=== PATIENT | male | born 1960 | race Caucasian/White ===

== ENCOUNTER → 2018-03-04 | Outpatient (CLI) | payer MEDICARE, MEDICAID ==
[~2018-03-04] MED LIST: ASPI-231 PO; ATO40T PO; BUME2TAB3 PO; CLOP75TA28 PO; FERR1TAB17 PO; GABA300C10 PO; INSU1INJ19 SC; METO-75 PO; METO25TA5 PO; NEPVITT PO; NIFE60TA59 PO; POTASSIUM CHL 20 Meq TABLET PO ONE; TAMS0.4C36 PO; novalog SC
[2018-03-04 15:55] VITALS: BP 125/74
[2018-03-04 16:20] VITALS: BP 115/59
== END | disposition home or self-care (01) ==
LOC: CHF HDHVI 15:52
PROVIDERS: ATTEND Internal Medicine Cardiovascular Disease
DX: E87.6 Hypokalemia (principal); N17.9 Acute kidney failure, unspecified; E11.9 Type 2 diabetes mellitus without complications; J44.9 Chronic obstructive pulmonary disease, unspecified; F17.200 Nicotine dependence, unspecified, uncomplicated; Z79.899 Other long term (current) drug therapy
CPT/HCPCS: G0463

== ENCOUNTER → 2018-03-04 | Outpatient (CLI) | payer MEDICARE, MEDICAID ==
[~2018-03-04] MED LIST changes: -POTASSIUM CHL 20 Meq TABLET PO ONE
[2018-03-04 14:09] LABS: Basophils # (auto) 0.1 uL; Basophils % (auto) 0.9 % (0.0-2.0); Eosinophils # (auto) 0.2 uL; Eosinophils % (auto) 2.2 % (0.0-7.0); Hematocrit 43.7 % (41.0-53.0); Hemoglobin 15.2 g/dL (13.5-17.5); Lymphocytes # (auto) 1.6 uL; Mean Corpuscular Hemoglobin 29.7 pg (28.0-32.0); Mean Corpuscular Hgb Conc. 34.8 g/dL (32.0-36.0); Mean Corpuscular Volume 85.4 fL (80.0-100.0); Monocytes # (auto) 0.9 uL; Monocytes % (auto) 8.6 % (0.0-12.0); Neutrophils # (auto) 7.9 uL; Neutrophils % (auto) 73.3 % (37.0-80.0); Platelet Count (auto) 238 10^3/uL (140-450); Red Blood Cells 5.12 10^6/uL (4.5-5.90); Red Cell Distribution Width 15.9 % (11.8-14.3); White Blood Cell 10.8 10^3/uL (4.4-10.8)
[2018-03-04 14:28] LABS: INR 0.94 (0.9-1.15); Prothrombin Time 10.1 sec (9.27-12.13)
[2018-03-04 14:50] LABS: Calcium 7.9 mg/dL (8.5-10.1)
[2018-03-04 14:53] LABS: BUN/Creatinine Ratio 26.9
[2018-03-04 15:02] LABS: Potassium 2.7 mmol/L (3.5-5.1)
== END | disposition home or self-care (01) ==
LOC: LAB 13:49
PROVIDERS: ATTEND Internal Medicine Cardiovascular Disease
DX: Z01.818 Encounter for other preprocedural examination (principal); I50.9 Heart failure, unspecified; J44.9 Chronic obstructive pulmonary disease, unspecified
CPT/HCPCS: 36415; 80048; 85025; 85610; 85730

== ENCOUNTER 2018-03-06 10:37 | Inpatient (IN) | payer MEDICARE, MEDICAID ==
[~2018-03-06] VITALS: Ht 175.3 cm; Wt 120.5 kg
[2018-03-06] MEDS ORDERED: LIDOCAINE 2%HCL (LOCAL ANESTH.) INJ 10ml MDV ONE (12:49)
[2018-03-06] MEDS ORDERED: IODIXANOL 320MG/ML 100ML BTL IV ONE ×2 (12:49→13:23)
[2018-03-06] MEDS ORDERED: ANGIOMAX 250 MG VIAL IV ONE ×2 (12:51→14:17)
[2018-03-06] MEDS ORDERED: fentaNYL CITRATE 100 MCG/2 ML VL ONE (12:51)
[2018-03-06] MEDS ORDERED: SODIUM CHL 0.9% 0 ML ONE (12:52)
[2018-03-06] MEDS ORDERED: MIDAZOLAM HCL 1MG/1ML-2 ML VIAL ONE (12:52)
[2018-03-06] MEDS ORDERED: SODIUM CHL 0.9% 50 ML ONE (14:17)
[2018-03-06] MEDS ORDERED: SODIUM CHL 0.9% 1,000 ML IV ONE (14:54)
[2018-03-06] MEDS ORDERED: DEXTROSE (50%) 50ML SYRG IV PRN (15:00)
[2018-03-06] MEDS ORDERED: NITROGLYCERIN 0.4 MG SL TAB SL PRN (15:00)
[2018-03-06] MEDS ORDERED: ACETAMINOPHEN 500 MG TAB PO PRN (15:00)
[2018-03-06] MEDS ORDERED: MORPHINE SULF INJ 2 MG/ML SYRINGE 1ML IV PRN (15:00)
[2018-03-06] MEDS ORDERED: ONDANSETRON HCL 4 MG/2 ML VIAL IV PRN (15:00)
[2018-03-06 16:00] VITALS: BP 125/68
[2018-03-06] MEDS: ACCU-CHEK COMFORT CURVE STRIP VI SCH ×2 (16:38→21:45)
[2018-03-06] MEDS: GABAPENTIN 300 MG CAP PO SCH ×2 (16:47→21:41)
[2018-03-06] MEDS: HYDROcodone-ACET 5/325MG TAB PO PRN ×2 (16:47→21:42)
[2018-03-06] MEDS: InsuLIN REG 1unit/0.01ml Soln (100units/ml) SC SCH (16:47)
[2018-03-06] MEDS: METOPROLOL TARTRATE 25 MG TAB PO SCH (21:41)
[2018-03-06] MEDS: SODIUM CHLOR 0.9% PF (SALINE LOCK) 10ML VIAL/SYR IV SCH (21:44)
[2018-03-06 22:00] VITALS: BP 172/75
[2018-03-06] MEDS ORDERED: INSULIN LANTUS (GLARGINE) 1 /0.01ml (100units/ml) SC SCH (22:00)
[2018-03-06] MEDS ORDERED: TAMSULOSIN HYDROCHLORIDE 0.4 MG CAP PO SCH (22:00)
[2018-03-06] MEDS ORDERED: InsuLIN REG 1unit/0.01ml Soln (100units/ml) SC SCH (22:00)
[2018-03-06] MEDS ORDERED: ATORVASTATIN 20 MG TAB PO SCH (22:00)
[2018-03-07 05:00] VITALS: BP 162/94
[2018-03-07] MEDS: GABAPENTIN 300 MG CAP PO SCH ×2 (05:39→11:52)
[2018-03-07] MEDS: SODIUM CHLOR 0.9% PF (SALINE LOCK) 10ML VIAL/SYR IV SCH ×2 (05:40→14:16)
[2018-03-07] MEDS: ACCU-CHEK COMFORT CURVE STRIP VI SCH ×2 (05:40→11:56)
[2018-03-07] MEDS: InsuLIN REG 1unit/0.01ml Soln (100units/ml) SC SCH ×2 (05:40→11:56)
[2018-03-07 06:44] LABS: Calcium 8.4 mg/dL (8.5-10.1)
[2018-03-07 06:51] LABS: BUN/Creatinine Ratio 31.2
[2018-03-07 07:10] LABS: Potassium 2.8 mmol/L (3.5-5.1)
[2018-03-07] MEDS ORDERED: POTASSIUM CHL 20 Meq TABLET PO ONE ×2 (07:45→14:00)
[2018-03-07 09:54] VITALS: BP 136/71
[2018-03-07] MEDS ORDERED: CLOPIDOGREL BISULFATE 75 MG TAB PO SCH (10:00)
[2018-03-07] MEDS ORDERED: ASPirin-EC 81 mg tab PO SCH (10:00)
[2018-03-07] MEDS ORDERED: B-COMPLEX W/ C & FOLIC ACID(NEPHROVITE TAB) PO SCH (10:00)
[2018-03-07] MEDS ORDERED: NIFEdipine ER 30 MG TAB PO SCH (10:00)
[2018-03-07] MEDS: METOPROLOL TARTRATE 25 MG TAB PO SCH (10:45)
[2018-03-07 13:00] VITALS: BP 131/76
[2018-03-07 16:33] VITALS: BP 132/70
[2018-03-07 16:35] VITALS: BP 129/74
== END 2018-03-07 17:42 | disposition home or self-care (01) | DRG 271 ==
LOC: CATH 10:37 → TELE-WESTW 10:38
PROVIDERS: ADMIT Internal Medicine Cardiovascular Disease; ATTEND Internal Medicine Cardiovascular Disease
PROC: B41G1ZZ Fluoroscopy of Left Lower Extremity Arteries using Low Osmolar Contrast (ICD-10-PCS; principal; 2018-03-06)
PROC: 04CP3ZZ Extirpation of Matter from Right Anterior Tibial Artery, Percutaneous Approach (ICD-10-PCS; 2018-03-06)
PROC: 047P3ZZ Dilation of Right Anterior Tibial Artery, Percutaneous Approach (ICD-10-PCS; 2018-03-06)
PROC: B41F1ZZ Fluoroscopy of Right Lower Extremity Arteries using Low Osmolar Contrast (ICD-10-PCS; 2018-03-06)
DX: I70.213 Atherosclerosis of native arteries of extremities with intermittent claudication, bilateral legs (principal); N17.9 Acute kidney failure, unspecified; N18.4 Chronic kidney disease, stage 4 (severe); I74.3 Embolism and thrombosis of arteries of the lower extremities; E11.51 Type 2 diabetes mellitus with diabetic peripheral angiopathy without gangrene; E78.5 Hyperlipidemia, unspecified; E66.9 Obesity, unspecified; I12.9 Hypertensive chronic kidney disease with stage 1 through stage 4 chronic kidney disease, or unspecified chronic kidney disease; E87.6 Hypokalemia; E11.22 Type 2 diabetes mellitus with diabetic chronic kidney disease; E11.21 Type 2 diabetes mellitus with diabetic nephropathy; H54.8 Legal blindness, as defined in USA; Z87.891 Personal history of nicotine dependence; Z82.49 Family history of ischemic heart disease and other diseases of the circulatory system; Z68.39 Body mass index [BMI] 39.0-39.9, adult
CPT/HCPCS: 36415; 37228; 37229; 75716; 80048; 82962; 84132; 93005; 99152; A6257; J1815; J2001; J2250; Q9967

== ENCOUNTER 2018-03-12 16:44 | Emergency (ER) | payer MEDICARE, MEDICAID ==
[~2018-03-12] VITALS: Ht 172.7 cm; Wt 90.7 kg
[2018-03-12 16:57] VITALS: BP 137/87
[2018-03-12 17:58] LABS: Basophils # (auto) 0.1 uL; Basophils % (auto) 0.6 % (0.0-2.0); Eosinophils # (auto) 0.3 uL; Eosinophils % (auto) 3.1 % (0.0-7.0); Hematocrit 41.7 % (41.0-53.0); Hemoglobin 14.1 g/dL (13.5-17.5); Lymphocytes # (auto) 1.3 uL; Lymphocytes % (auto) 11.7 % (10.0-50.0); Mean Corpuscular Hemoglobin 29.4 pg (28.0-32.0); Mean Corpuscular Hgb Conc. 33.8 g/dL (32.0-36.0); Mean Corpuscular Volume 86.9 fL (80.0-100.0); Monocytes % (auto) 8.9 % (0.0-12.0); Neutrophils # (auto) 8.1 uL; Neutrophils % (auto) 75.7 % (37.0-80.0); Nucleated Red Blood Cells % 0.1 %; Platelet Count (auto) 253 10^3/uL (140-450); Red Cell Distribution Width 15.6 % (11.8-14.3); White Blood Cell 10.7 10^3/uL (4.4-10.8)
[2018-03-12 18:11] LABS: Albumin 3.1 g/dL (3.4-5.0); BUN/Creatinine Ratio 24.5; Calcium 8.2 mg/dL (8.5-10.1); Potassium 4.7 mmol/L (3.5-5.1)
[2018-03-12 18:14] LABS: Bilirubin, Total 0.5 mg/dL (0.2-1.0)
== END 2018-03-12 21:44 | disposition left against medical advice (07) ==
LOC: EDBD 16:44 → ER 16:50
DX: R10.11 Right upper quadrant pain (principal); R42 Dizziness and giddiness; Z53.21 Procedure and treatment not carried out due to patient leaving prior to being seen by health care provider
CPT/HCPCS: 36415; 80053; 84484; 85025; 93005

== ENCOUNTER → 2018-04-01 | Outpatient (CLI) | payer MEDICARE, MEDICAID | END | disposition home or self-care (01) | LOC: Rad HDHVI 14:02 | PROVIDERS: ATTEND Internal Medicine Cardiovascular Disease | DX: I73.9 Peripheral vascular disease, unspecified (principal); I11.0 Hypertensive heart disease with heart failure; I50.9 Heart failure, unspecified; E11.9 Type 2 diabetes mellitus without complications; J44.9 Chronic obstructive pulmonary disease, unspecified; F32.9 Major depressive disorder, single episode, unspecified; F41.9 Anxiety disorder, unspecified; F17.200 Nicotine dependence, unspecified, uncomplicated | CPT/HCPCS: 93926 ==

== ENCOUNTER → 2018-04-07 | Outpatient (CLI) | payer MEDICARE, MEDICAID ==
[2018-04-07 10:30] VITALS: BP 141/60
[2018-04-07 11:00] VITALS: BP 131/73
[2018-04-07 12:52] LABS: INR 0.95 (0.9-1.15); Partial Thromboplastin Time 27.4 sec (23.78-33.04); Prothrombin Time 10.2 sec (9.27-12.13)
[2018-04-07 13:10] LABS: Basophils # (auto) 0.1 uL; Basophils % (auto) 0.6 % (0.0-2.0); Eosinophils # (auto) 0.3 uL; Eosinophils % (auto) 2.9 % (0.0-7.0); Hemoglobin 14.5 g/dL (13.5-17.5); Lymphocytes # (auto) 1.5 uL; Lymphocytes % (auto) 13.1 % (10.0-50.0); Mean Corpuscular Hemoglobin 28.9 pg (28.0-32.0); Mean Corpuscular Hgb Conc. 33.6 g/dL (32.0-36.0); Mean Corpuscular Volume 86.1 fL (80.0-100.0); Monocytes # (auto) 0.8 uL; Monocytes % (auto) 6.7 % (0.0-12.0); Neutrophils # (auto) 8.8 uL; Neutrophils % (auto) 76.7 % (37.0-80.0); Platelet Count (auto) 242 10^3/uL (140-450); Red Cell Distribution Width 15.4 % (11.8-14.3); White Blood Cell 11.4 10^3/uL (4.4-10.8)
[2018-04-07 13:36] LABS: BUN/Creatinine Ratio 28.5; Calcium 8.3 mg/dL (8.5-10.1)
[2018-04-07 14:09] LABS: Potassium 2.8 mmol/L (3.5-5.1)
== END | disposition home or self-care (01) ==
LOC: Rad HDHVI 10:13
PROVIDERS: ATTEND Internal Medicine Cardiovascular Disease
DX: Z01.812 Encounter for preprocedural laboratory examination (principal); I10 Essential (primary) hypertension; E11.9 Type 2 diabetes mellitus without complications; I73.9 Peripheral vascular disease, unspecified; R79.1 Abnormal coagulation profile; D64.9 Anemia, unspecified
CPT/HCPCS: 36415; 71046; 80048; 85025; 85610; 85730; 93005; G0463

== ENCOUNTER → 2018-04-09 | Outpatient (CLI) | payer MEDICARE, MEDICAID ==
[2018-04-09 09:06] LABS: Magnesium 2.2 mg/dL (1.6-2.6)
== END | disposition home or self-care (01) ==
LOC: LAB 08:08
PROVIDERS: ATTEND Internal Medicine Cardiovascular Disease
DX: E83.40 Disorders of magnesium metabolism, unspecified (principal); R94.4 Abnormal results of kidney function studies; E87.6 Hypokalemia; I50.9 Heart failure, unspecified; J44.9 Chronic obstructive pulmonary disease, unspecified; F41.9 Anxiety disorder, unspecified; F32.9 Major depressive disorder, single episode, unspecified; F17.200 Nicotine dependence, unspecified, uncomplicated
CPT/HCPCS: 36415; 82565; 83735; 84132; 84520

== ENCOUNTER 2025-03-06 10:34 | Inpatient (IN) | payer MEDICARE, MEDICAID ==
[~2025-03-06] VITALS: Ht 175.3 cm; Wt 110.7 kg
[~2025-03-06 10:34] MED LIST changes: -ASPI-231 PO; +ASPI1TAB20 PO; -ATO40T PO; +ATOR-507 PO; +B-CO1TAB33 PO; -BUME2TAB3 PO; +BUME2TAB5 PO; +GABA-1250 PO; -GABA300C10 PO; -METO-75 PO; +METO10TA7 PO; -NEPVITT PO; +NIFE1TAB30 PO; -NIFE60TA59 PO; -TAMS0.4C36 PO; +TAMS0.4C39 PO
--- NOTE | 2025-03-06 11:44 | ED.PDOC ---
HPI Comments 65-year-old male with a history of right eye blindness, CKD, diabetes, dyslipidemia, CAD status post PTCA brought in by EMS from home complaining of left-sided pressure-like chest pain since yesterday, worse over the past 2 hours. Patient states pain has been constant. At its worst it was 9/10. Patient was given aspirin p.o. and sublingual nitroglycerin by EMS, which improved pain to 5/10. He denies any shortness of breath, fever, cough, nausea, vomiting, diaphoresis or edema. Chief Complaint: Chest Pain Time Seen by MD: 11:35 Primary Care Provider: NONE Reviewed Notes: Nurses Notes, Retail Advertising Sales Manager Notes, Medications, Allergies Allergies: Coded Allergies: NO KNOWN ALLERGIES (Unverified , 04/07/18) Home Meds Reported Medications Insulin Glargine (Basaglar Kwikpen) 100 Unit/Ml Inj, 50 UNIT SC HS, INJ 03/03/18 B-Complex W/ C & Folic Acid (Nephro-Edie Rx) 1 Tab Tb, 1 TAB PO DAILY 03/03/18 Metolazone (Metolazone) 10 Mg Tab, 10 MG PO DAILY for 30 Days, MG 03/03/18 Metoprolol Tartrate (Metoprolol Tartrate) 25 Mg Tab, 25 MG PO BID for 30 Days, MG 03/03/18 Ferric Citrate (Auryxia) 210 Mg Tab, 210 MG PO DAILY, TAB 03/03/18 [novalog] No Conflict Check, 8 UNITS SC lunch time 05/22/17 [novalog] No Conflict Check, 8 UNITS SC QPM 05/22/17 [novalog] No Conflict Check, 14 SC QAM 05/22/17 Nifedipine (Nifedipine Er) 60 Mg Tab, 1 TAB PO DAILY, #30 TAB 5 Refills 05/22/17 Bumetanide (Bumetanide) 2 Mg Tab, 1 TAB PO BID, #60 TAB 5 Refills 05/23/16 Atorvastatin Calcium (Lipitor) 40 Mg Tab, 40 MG PO HS, TAB 03/28/15 Aspirin (Aspir-81) 81 Mg Tab, 81 MG PO DAILY, TAB 03/28/15 Tamsulosin Hcl (Tamsulosin Hcl) 0.4 Mg Cap, 0.4 MG PO HS, CAP 03/28/15 Gabapentin (Gabapentin) 300 Mg Cap, 600 MG PO QID, CAP 03/28/15 Clopidogrel Bisulfate (Plavix) 75 Mg Tab, 75 MG PO DAILY, TAB 03/28/15 Information Source: Patient Mode of Arrival: EMS Past Medical History PAST MEDICAL HISTORY: CAD, CKF, DM (type II), ESRD, High Lipids Past Medical History (Other): blind in right eye On ASA and Plavix LUCIANO on [facility]N Surgical History: Cholecystectomy, PTCA (x2) Surgical History (Other): 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 Moist mucous membranes.) Neck: Full Range of Motion, Normal Inspection Respiratory: Lungs Clear, No Accessory Muscle Use, No Respiratory Distress, Normal Breath Sounds Cardiovascular: No Edema, No JVD, Regular Rate/Rhythm Breast Exam: Deferred Gastrointestinal: Non Tender, Soft Genitalia: Deferred Pelvic: Deferred Rectal: Deferred Extremities: Non-tender, No pedal edema Neurologic: Alert (Oriented x4), Normal Affect, Normal Mood Cerebellar Function: NOT DONE Reflexes: NOT DONE Skin: Dry, Normal Color, Warm Lymphatic: NOT DONE EKG EKG : Comments Sinus rhythm, rate 66, ID slightly prolonged at 222, normal QRS and QTC intervals, normal axis, normal QRS, nonspecific T change. Was a procedure done? Was a procedure done?: No CP Differential Dx Differential Diagnosis: Pulmonary Embolus, N/A Differential Diagnosis: CHF Differential Diagnosis: Angina, Chest Wall Pain, Cholelithiasis, Esophageal reflux/spasm, Gastritis, Myocardial Infarction, Pericarditis, Pneumonia, Pulmonary Embolus X-Ray, Labs, Meds, VS Vital Signs Date Time Temp Pulse Resp B/P (MAP) Pulse Ox O2 Delivery O2 Flow Rate FiO2 03/06/25 13:44 75 15 143/53 (83) 94 03/06/25 13:44 75 15 143/53 03/06/25 12:51 71 16 110/62 03/06/25 12:51 71 16 110/62 (78) 94 03/06/25 12:28 71 03/06/25 12:26 71 14 95 Room Air* 0 21 03/06/25 12:26 97.7 71 14 106/53 (70) 94 97.7 03/06/25 10:46 66 03/06/25 10:35 98.0 61 18 132/75 97 98.0 Lab Test 03/06/25 13:11 03/06/25 12:05 Range/Units Troponin I High Sensitivity Pending 32 </=54 ng/L White Blood Count 13.4 H 4.4-10.8 10^3/uL Red Blood Count 4.87 4.5-5.90 10^6/uL Hemoglobin 15.4 13.5-17.5 g/dL Hematocrit 44.8 41.0-53.0 % Mean Corpuscular Volume 91.9 80.0-100.0 fL Mean Corpuscular Hemoglobin 31.6 28.0-32.0 pg Mean Corpuscular Hemoglobin Concent 34.4 32.0-36.0 g/dL Red Cell Distribution Width 13.9 11.8-14.3 % Platelet Count 209 140-450 10^3/uL Mean Platelet Volume 9.3 6.9-10.8 fL Neutrophils (%) (Auto) 37.0-80.0 % Lymphocytes (%) (Auto) 10.0-50.0 % Monocytes (%) (Auto) 0.0-12.0 % Basophils (%) (Auto) 0.0-2.0 % Neutrophils # (Auto) 1.6-8.6 10 ^3/uL Lymphocytes # (Auto) 0.4-5.4 10 ^3/uL Monocytes # (Auto) 0-1.3 10 ^3/uL Differential Total Cells Counted 100.0 100 Neutrophils % (Manual) 85 H 37.0-80.0 Band Neutrophils % (Manual) 2 Lymphocytes % (Manual) 8 L 10.0-50.0 Monocytes % (Manual) 4 0-12 Eosinophils % (Manual) 1 0-7 Basophils % (Manual) 0 0.0-2.0 Metamyelocytes % (manual) 0 Myelocytes % (Manual) 0 Promyelocytes % (Manual) 0 Blast Cells % (Manual) 0 Reactive Lymphocytes 0 Platelet Estimate Adequate Sodium Level 128 L 136-145 mmol/L Potassium Level 4.9 3.5-5.1 mmol/L Chloride Level 93 L 98-107 mmol/L Carbon Dioxide Level 24 20-31 mmol/L Anion Gap 11 5-15 Blood Urea Nitrogen 77 H 9-23 mg/dL Creatinine 2.62 H 0.700-1.30 mg/dL Glomerular Filtration Rate Calc 26 >90 mL/min BUN/Creatinine Ratio 29.4 H 10.0-20.0 Serum Glucose 126 H 74-106 mg/dL Calcium Level 9.3 8.7-10.4 mg/dL B-Type Natriuretic Peptide 33.27 0-100 pg/mL Current Medications Medications (Trade) Dose Ordered Sig/Rashid Route Start Time Stop Time Status Last Admin Morphine Sulfate 4 mg ONCE ONCE IV 03/06/25 11:45 03/06/25 11:46 DC 03/06/25 12:51 Ondansetron HCl (Zofran) 4 mg ONCE ONCE IV 03/06/25 11:45 03/06/25 11:46 DC 03/06/25 12:48 PROCEDURE(s): CXRP - CHEST PORTABLE REASON: cp ORDER NUMBER(s): [id number], ACCESSION NUMBER(s): [id number] CHEST RADIOGRAPH Indication: cp Technique: Single frontal view of the chest was obtained COMPARISON: XY CHEST PORTABLE on DOS: 03/31/24 FINDINGS: Lines and Tubes: None Lungs: Clear Pleura: No effusion. No pneumothorax. Cardiomediastinal contours: Unremarkable Bones: Unremarkable IMPRESSION: 1. No acute disease. X-Ray, Labs, Meds, VS Comment 65-year-old male with a history of right eye blindness, CKD, diabetes, dys lipidemia, CAD status post PTCA brought in by EMS from home complaining of left- sided pressure-like chest pain since yesterday, worse over the past 2 hours. Vitals unremarkable Exam unremarkable Rhythm strip independently interpreted by me: Sinus rhythm, rate 86, no ectopy. Chest x-ray no acute disease CBC remarkable for WBC 13.4, basic metabolic panel remarkable for sodium 128, chloride 93, BUN 77, creatinine 2.62, BNP and troponin unremarkable Patient treated with the following in the ED: Nitro-Bid 1/2 inch to chest wall, morphine 4 mg IV, Zofran 4 mg IV, 1 L 0.9 normal saline IV bolus On re-evaluation, pain has improved. Vitals were stable. Heart score is 6. Plan is to admit the patient for ongoing serial troponins and Cardiology evaluation. Time of 1ST Reevaluation: 12:05 Reevaluation 1ST: Unchanged Patient Education/Counseling: Diagnosis, Treatment Family Education/Counseling: No Family Present SEPSIS Sepsis Screen Date sepsis recognized/suspect: Mar 06, 2025 Time Sepsis recognized/suspect: 1034 Recent Procedure: No On Antibiotic Therapy: No Respiratory Rate >20: No Heart Rate >90: No Temp<36 C (96.8 F) or >38.3 C: No SBP <90 or MAP <65 mmHG: No New Acute Mental Status Change: No Is the patient on CPAP, BIPAP,: No Physician Orders Chest Portable (03/06/25 11:39) Urinalysis (03/06/25 11:39) Troponin-I Hs (03/06/25 12:39) Troponin-I Hs (03/06/25 14:39) Electrocardigram (03/06/25 12:39) Electrocardigram (03/06/25 14:39) Saline Lock (03/06/25 12:01) Sodium Chloride 0.9% (03/06/25 14:00) Vital Signs Date Time Temp Pulse Resp B/P (MAP) Pulse Ox O2 Delivery O2 Flow Rate FiO2 03/06/25 13:44 75 15 143/53 (83) 94 03/06/25 13:44 75 15 143/53 03/06/25 12:51 71 16 110/62 03/06/25 12:51 71 16 110/62 (78) 94 03/06/25 12:28 71 03/06/25 12:26 71 14 95 Room Air* 0 21 03/06/25 12:26 97.7 71 14 106/53 (70) 94 97.7 03/06/25 10:46 66 03/06/25 10:35 98.0 61 18 132/75 97 98.0 Laboratory Tests Test 03/06/25 12:05 White Blood Count 13.4 10^3/uL (4.4-10.8) H Medications Medications Dose Ordered Sig/Rashid Route Start Time Stop Time Status Last Admin Dose Admin Morphine Sulfate 4 mg ONCE ONCE IV 03/06/25 11:45 03/06/25 11:46 DC 03/06/25 12:51 Ondansetron HCl 4 mg ONCE ONCE IV 03/06/25 11:45 03/06/25 11:46 DC 03/06/25 12:48 Departure 1 Departure Time of Disposition: 13:00 Impression: Primary Impression: Chest pain with high risk for cardiac etiology Additional Impression: Electrolyte imbalance Disposition: ADMITTED INPATIENT Admit to: Tele Condition: Guarded Critical Care Note Critical Care Time?: No Stability Stability form required: No Heart Score Heart Score: Heart Score Response (Comments) Value History Highly Suspicious 2 EKG Repolarization Disturb 1 Age 45-64 1 Risk Factors >3 or Hx ASHD 2 Troponin Normal limit 0 Total 6 I personally scribed for ALFREDO THOMAS MD ([email or web address]) on 03/06/25 at 11:44. Electronically submitted by Eleno Thorpe [email or web address]). ALFREDO THOMAS MD Mar 06, 2025 11:44
[2025-03-06] MEDS: ONDANSETRON HCL 4 MG/2 ML VIAL IV ONE (12:24)
[2025-03-06] MEDS: NITROGLYCERIN 2% OINT 1GM PKG TD ONE (12:24)
[2025-03-06] MEDS: MORPHINE SULFATE 4 MG/ML SYR/VIAL IV ONE (12:24)
[2025-03-06 12:26] VITALS: PULSE 71; RESP 14; O2SAT 95
--- NOTE | 2025-03-06 12:35 | DVH ---
CHEST RADIOGRAPH Indication: cp Technique: Single frontal view of the chest was obtained COMPARISON: XY CHEST PORTABLE on DOS: 03/31/24 FINDINGS: Lines and Tubes: None Lungs: Clear Pleura: No effusion. No pneumothorax. Cardiomediastinal contours: Unremarkable Bones: Unremarkable IMPRESSION: 1. No acute disease.
--- NOTE | 2025-03-06 12:36 | ECG ---
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
[2025-03-06 12:47] LABS: Hematocrit 44.8 % (41.0-53.0); Hemoglobin 15.4 g/dL (13.5-17.5); Mean Corpuscular Hemoglobin 31.6 pg (28.0-32.0); Mean Corpuscular Volume 91.9 fL (80.0-100.0)
[2025-03-06 12:49] LABS: Potassium 4.9 mmol/L (3.5-5.1)
[2025-03-06 12:50] LABS: Anion Gap 11 (5-15); Carbon Dioxide 24 mmol/L (20-31)
[2025-03-06 12:51] LABS: Calcium 9.3 mg/dL (8.7-10.4)
[2025-03-06 12:55] LABS: BUN/Creatinine Ratio 29.4 (10.0-20.0)
[2025-03-06 12:57] LABS: Blood Urea Nitrogen 77 mg/dL (9-23); Chloride 93 mmol/L (98-107); Glucose 126 mg/dL (74-106); Sodium 128 mmol/L (136-145)
[2025-03-06 13:23] LABS: Total Cells Counted 100.0 (100)
[2025-03-06] MEDS: SODIUM CHLORIDE 0.9% 1,000 ML IV ONE (14:11)
--- NOTE | 2025-03-06 14:42 | DVHHP2 ---
Admitting Diagnosis: chest pain History of Present Illness 65-year-old male with a history of right eye blindness, CKD, diabetes, dyslipidemia, CAD status post PTCA brought in by EMS from home complaining of left-sided pressure-like chest pain since yesterday, worse over the past 2 hours. Patient states pain has been constant. At its worst it was 9/10. Patient was given aspirin p.o. and sublingual nitroglycerin by EMS, which improved pain to 5/10. He denies any shortness of breath, fever, cough, nausea, vomiting, diaphoresis or edema. PAST MEDICAL HISTORY: CAD, CKF, DM (type II), ESRD, High Lipids Past Medical History (Other): blind in right eye On ASA and Plavix LUCIANO on [facility] Surgical History: Cholecystectomy, PTCA (x2) Surgical History (Other): Right foot amputation of rahul and fith digit Left mid foot amputatin Gastric bypass Family History Family History: Unobtainable Social History Smoker: Cigarettes Alcohol: Occasionally Drugs: Methamphetamine Lives In: Home Patient Family History: Patient reports no known family medical history. Allergies: Coded Allergies: NO KNOWN ALLERGIES (Unverified , 04/07/18) Home Meds Reported Medications Insulin Glargine (Basaglar Kwikpen) 100 Unit/Ml Inj, 50 UNIT SC HS, INJ 03/03/18 B-Complex W/ C & Folic Acid (Nephro-Edie Rx) 1 Tab Tb, 1 TAB PO DAILY 03/03/18 Metolazone (Metolazone) 10 Mg Tab, 10 MG PO DAILY for 30 Days, MG 03/03/18 Metoprolol Tartrate (Metoprolol Tartrate) 25 Mg Tab, 25 MG PO BID for 30 Days, MG 03/03/18 Ferric Citrate (Auryxia) 210 Mg Tab, 210 MG PO DAILY, TAB 03/03/18 [novalog] No Conflict Check, 8 UNITS SC lunch time 05/22/17 [novalog] No Conflict Check, 8 UNITS SC QPM 05/22/17 [novalog] No Conflict Check, 14 SC QAM 05/22/17 Nifedipine (Nifedipine Er) 60 Mg Tab, 1 TAB PO DAILY, #30 TAB 5 Refills 05/22/17 Bumetanide (Bumetanide) 2 Mg Tab, 1 TAB PO BID, #60 TAB 5 Refills 05/23/16 Atorvastatin Calcium (Lipitor) 40 Mg Tab, 40 MG PO HS, TAB 03/28/15 Aspirin (Aspir-81) 81 Mg Tab, 81 MG PO DAILY, TAB 03/28/15 Tamsulosin Hcl (Tamsulosin Hcl) 0.4 Mg Cap, 0.4 MG PO HS, CAP 03/28/15 Gabapentin (Gabapentin) 300 Mg Cap, 600 MG PO QID, CAP 03/28/15 Clopidogrel Bisulfate (Plavix) 75 Mg Tab, 75 MG PO DAILY, TAB 03/28/15 Current Medications Current Medications Medications (Trade) Dose Ordered Sig/Rashid Route PRN Reason Start Time Stop Time Status Last Admin Aspirin (Ecotrin Enteric Coated Tablet) 81 mg DAILY PO 03/07/25 10:00 UNV Multivit/Ca Carb/ B Cmplx/FA/Prenat (Nephro-Edie Tablet) 1 tab DAILY PO 03/07/25 10:00 UNV Clopidogrel Bisulfate (Plavix) 75 mg DAILY PO 03/07/25 10:00 UNV Gabapentin (Neurontin Capsule) 600 mg QID PO 03/06/25 18:00 UNV Tamsulosin HCl (Flomax) 0.4 mg HS PO 03/06/25 22:00 UNV Patient Own Medication 40 mg HS PO 03/06/25 22:00 UNV Patient Own Medication 210 mg DAILY PO 03/07/25 10:00 UNV Patient Own Medication 50 unit HS SC 03/06/25 22:00 UNV Patient Own Medication 10 mg DAILY PO 03/07/25 10:00 UNV Patient Own Medication 1 tab DAILY PO 03/07/25 10:00 UNV Heparin Sodium (Porcine) 5,000 units Q12HR SC 03/06/25 22:00 UNV Vital Signs Vital Signs Date Time Temp Pulse Resp B/P (MAP) Pulse Ox O2 Delivery O2 Flow Rate FiO2 03/06/25 13:44 75 15 143/53 (83) 94 03/06/25 12:26 Room Air* 0 21 03/06/25 12:26 97.7 97.7 Physical Exam Generally 65 years old male, overweight, lying in bed. Mild distress HEENT-atraumatic, normocephalic Heart-regular rate and rhythm Lungs clear to auscultate bilaterally Abdomen nondistended Musculoskeletal-pedal edema no cyanosis Neuro-AO x3, no focal deficits SEPSIS Sepsis Screen Date sepsis recognized/suspect: Mar 06, 2025 Time Sepsis recognized/suspect: 1035 Recent Procedure: No On Antibiotic Therapy: No Respiratory Rate >20: No Heart Rate >90: No Temp<36 C (96.8 F) or >38.3 C: No SBP <90 or MAP <65 mmHG: No New Acute Mental Status Change: No Is the patient on CPAP, BIPAP,: No Physician Orders Chest Portable (03/06/25 11:39) Electrocardigram (03/06/25 12:39) Electrocardigram (03/06/25 14:39) Saline Lock (03/06/25 12:01) Cardiac Diet-2gna,Lofat,Lochol (03/06/25 Dinner) Npo (Nothing By Mouth) Diet (03/07/25 Breakfast) Cardiolite Multiple (03/06/25 15:57) Aspirin Enteric Coated Tablet (Ecotrin E (03/07/25 10:00) B-Complex W/ C & Folic Tablet (Nephro-Vi (03/07/25 10:00) Clopidogrel Bisulfate (Plavix) (03/07/25 10:00) Gabapentin Capsule (Neurontin Capsule) (03/06/25 18:00) Tamsulosin Hydrochloride (Flomax) (03/06/25 22:00) (Nf) Atorvastatin Calcium (Lipitor) (03/06/25 22:00) (Nf) Ferric Citrate (Auryxia) (03/07/25 10:00) (Nf) Insulin Glargine (Basaglar Kwikpen) (03/06/25 22:00) (Nf) Metolazone (03/07/25 10:00) (Nf) Nifedipine (Nifedipine Er) (03/07/25 10:00) Comprehensive Metabolic Panel (03/07/25 05:00) Comprehensive Metabolic Panel (03/08/25 05:00) Comprehensive Metabolic Panel (03/09/25 05:00) Comprehensive Metabolic Panel (03/10/25 05:00) Comprehensive Metabolic Panel (03/11/25 05:00) Complete Blood Count (03/07/25 05:00) Complete Blood Count (03/08/25 05:00) Complete Blood Count (03/09/25 05:00) Complete Blood Count (03/10/25 05:00) Complete Blood Count (03/11/25 05:00) Heparin Sodium (Porcine) (03/06/25 22:00) Vital Signs Date Time Temp Pulse Resp B/P (MAP) Pulse Ox O2 Delivery O2 Flow Rate FiO2 03/06/25 13:44 75 15 143/53 (83) 94 03/06/25 13:44 75 15 143/53 03/06/25 12:51 71 16 110/62 03/06/25 12:51 71 16 110/62 (78) 94 03/06/25 12:28 71 03/06/25 12:26 71 14 95 Room Air* 0 21 03/06/25 12:26 97.7 71 14 106/53 (70) 94 97.7 03/06/25 10:46 66 03/06/25 10:35 98.0 61 18 132/75 97 98.0 Laboratory Tests Test 03/06/25 12:05 White Blood Count 13.4 10^3/uL (4.4-10.8) H Medications Medications Dose Ordered Sig/Rashid Route Start Time Stop Time Status Last Admin Dose Admin Morphine Sulfate 4 mg ONCE ONCE IV 03/06/25 11:45 03/06/25 11:46 DC 03/06/25 12:51 Ondansetron HCl 4 mg ONCE ONCE IV 03/06/25 11:45 03/06/25 11:46 DC 03/06/25 12:48 Sodium Chloride 1,000 ml @ 1,000 mls/hr Q1H ONCE IV 03/06/25 14:00 03/06/25 14:59 DC 03/06/25 14:11 Results Labs Test 03/06/25 13:11 03/06/25 13:06 03/06/25 12:05 Range/Units Troponin I High Sensitivity 29 </=54 ng/L Urine Color Light-yellow Yellow Urine Clarity Clear Clear Urine pH 5.5 5.0-9.0 Urine Specific [place] 1.008 1.001-1.035 Urine Protein Negative Negative Urine Ketones Negative Negative Urine Blood Negative Negative /uL Urine Nitrite Negative Negative Urine Bilirubin Negative Negative Urine Urobilinogen Normal Negative mg/dL Urine Leukocyte Esterase Negative Negative /uL Urine RBC <1 0 - 3 /hpf Urine Microscopic WBC < 1 0-3 /HPF Urine Squamous Epithelial Cells Few <5 /hpf Urine Bacteria Few H None Seen /hpf Urine Hyaline Casts Few 0 - 2 /lpf Urine Glucose Normal Normal mg/dL White Blood Count 13.4 H 4.4-10.8 10^3/uL Red Blood Count 4.87 4.5-5.90 10^6/uL Hemoglobin 15.4 13.5-17.5 g/dL Hematocrit 44.8 41.0-53.0 % Mean Corpuscular Volume 91.9 80.0-100.0 fL Mean Corpuscular Hemoglobin 31.6 28.0-32.0 pg Mean Corpuscular Hemoglobin Concent 34.4 32.0-36.0 g/dL Red Cell Distribution Width 13.9 11.8-14.3 % Platelet Count 209 140-450 10^3/uL Mean Platelet Volume 9.3 6.9-10.8 fL Neutrophils (%) (Auto) 37.0-80.0 % Lymphocytes (%) (Auto) 10.0-50.0 % Monocytes (%) (Auto) 0.0-12.0 % Basophils (%) (Auto) 0.0-2.0 % Neutrophils # (Auto) 1.6-8.6 10 ^3/uL Lymphocytes # (Auto) 0.4-5.4 10 ^3/uL Monocytes # (Auto) 0-1.3 10 ^3/uL Differential Total Cells Counted 100.0 100 Neutrophils % (Manual) 85 H 37.0-80.0 Band Neutrophils % (Manual) 2 Lymphocytes % (Manual) 8 L 10.0-50.0 Monocytes % (Manual) 4 0-12 Eosinophils % (Manual) 1 0-7 Basophils % (Manual) 0 0.0-2.0 Metamyelocytes % (manual) 0 Myelocytes % (Manual) 0 Promyelocytes % (Manual) 0 Blast Cells % (Manual) 0 Reactive Lymphocytes 0 Platelet Estimate Adequate Sodium Level 128 L 136-145 mmol/L Potassium Level 4.9 3.5-5.1 mmol/L Chloride Level 93 L 98-107 mmol/L Carbon Dioxide Level 24 20-31 mmol/L Anion Gap 11 5-15 Blood Urea Nitrogen 77 H 9-23 mg/dL Creatinine 2.62 H 0.700-1.30 mg/dL Glomerular Filtration Rate Calc 26 >90 mL/min BUN/Creatinine Ratio 29.4 H 10.0-20.0 Serum Glucose 126 H 74-106 mg/dL Calcium Level 9.3 8.7-10.4 mg/dL B-Type Natriuretic Peptide 33.27 0-100 pg/mL Primary Diagnosis Chest pain rule out ACS Plan Patient has tried began stress test few weeks ago per Cardiology but due to his left foot amputation and unable to help two-stress test chair patient unable to receive stress. Clear to cardiac diet for now, NPO after midnight Nuclear stress test Resume home meds Held beta-shanon Full code Heparin for DVT prophylaxis No GI prophylaxis needed Plan discussed with: Patient Problems List: (1) CORONARY ATHEROSCLEROSIS OF CROW CORONARY VESSEL Status: Acute Date of Service: Mar 06, 2025 Billing Provider: VITOR SHARPE MD Common Visit Codes: [id number] INP/OBS CARE (MOD) VITOR SHARPE MD Mar 06, 2025 14:42
[2025-03-06 15:01] LABS: Urine Protein, UAD Negative (Negative)
[2025-03-06] MEDS ORDERED: HYDROcodone-ACET 5/325MG TAB PO PRN (16:15)
[2025-03-06] MEDS ORDERED: ACETAMINOPHEN 325 MG TAB PO PRN (16:15)
[2025-03-06 17:52] VITALS: BP 130/57; PULSE 95; RESP 17; TEMP 97.6; O2SAT 95
[2025-03-06 18:30] VITALS: BP 130/57; PULSE 95; RESP 17; TEMP 97.6; O2SAT 95
[2025-03-06] MEDS: GABAPENTIN 300 MG CAP PO SCH (19:23)
[2025-03-06] MEDS ORDERED: GABA-339 PO (19:39)
[2025-03-06] MEDS ORDERED: HYDR50TA47 PO (19:39)
[2025-03-06] MEDS ORDERED: NIFE1TAB31 PO (19:39)
[2025-03-06] MEDS ORDERED: SPIR50TA5 PO (19:39)
[2025-03-06 20:00] VITALS: RESP 18; O2SAT 95
[2025-03-06 21:00] VITALS: BP 137/73; PULSE 95; RESP 17; TEMP 98.3; O2SAT 93
[2025-03-06] MEDS: ATORVASTATIN 20 MG TAB PO SCH (21:14)
[2025-03-06] MEDS: TAMSULOSIN HYDROCHLORIDE 0.4 MG CAP PO SCH (21:14)
[2025-03-06] MEDS: HEPARIN SODIUM (PORCINE) 5000 UNITS/ML 1ML VIAL SC SCH (21:14)
[2025-03-06] MEDS: SODIUM CHLOR 0.9% PF (SALINE LOCK) 10ML VIAL/SYR IV SCH (21:15)
[2025-03-06] MEDS: INSULIN LANTUS (GLARGINE) 1 /0.01ml (100units/ml) SC SCH (22:00)
[2025-03-07] VITALS (9 sets, daily range): BP systolic 57–144; BP diastolic 65–78; PULSE 53–89; RESP 14–20; TEMP 97.6–98.3; O2SAT 91–97
[2025-03-07 06:41] LABS: Hematocrit 41.2 % (41.0-53.0); Hemoglobin 14.1 g/dL (13.5-17.5); Mean Corpuscular Hemoglobin 31.7 pg (28.0-32.0); Mean Corpuscular Volume 92.9 fL (80.0-100.0); Nucleated Red Blood Cells % 0.0 %
[2025-03-07 07:03] LABS: Alanine Aminotransferase 32 U/L (7-40); Albumin 3.6 g/dL (3.2-4.8); Alkaline Phosphatase 86 U/L (46-116); Anion Gap 8 (5-15); BUN/Creatinine Ratio 21.1 (10.0-20.0); Bilirubin, Total 0.7 mg/dL (0.2-1.0); Calcium 8.9 mg/dL (8.7-10.4); Carbon Dioxide 26 mmol/L (20-31); Potassium 4.5 mmol/L (3.5-5.1); Total Protein 6.9 g/dL (5.7-8.2)
[2025-03-07 07:07] LABS: Blood Urea Nitrogen 52 mg/dL (9-23); Chloride 96 mmol/L (98-107); Glucose 283 mg/dL (74-106); Sodium 130 mmol/L (136-145)
[2025-03-07] MEDS: FERRIC CITRATE 210 MG PO SCH (09:58)
[2025-03-07] MEDS: B-COMPLEX W/ C & FOLIC ACID(NEPHROVITE TAB) PO SCH (10:00)
[2025-03-07] MEDS: ASPirin-EC 81 mg tab PO SCH (10:00)
[2025-03-07] MEDS: CLOPIDOGREL BISULFATE 75 MG TAB PO SCH (10:01)
[2025-03-07] MEDS: ONDANSETRON HCL 4 MG/2 ML VIAL IV PRN (12:17)
[2025-03-07] MEDS ORDERED: DEXTROSE (50%) 50ML SYRG IV PRN (12:30)
--- NOTE | 2025-03-07 13:31 | DVHINCON2 ---
Date Seen: Mar 07, 2025 Referring Physician CAROLINA Dawn Reason for Consultation Chest pain History of Present Illness This is a 65-year-old male patient who presents to the emergency room with chief complaint of chest pain. The patient reports experiencing chest pain for one day prior to emergency room arrival. He describes it as unprovoked, intermittent, stabbing in nature, left-sided and nonradiating. He denies any associated symptoms. Initial twelve lead electrocardiogram reveals normal sinus rhythm with first-degree conduction delay and nonspecific ST segment changes to inferior leads. Initial troponin level of 32ng/L with down trend thereafter. Significant past medical history includes coronary artery disease status post PTCA x 2 PAULINA (on aspirin and Plavix), congestive heart failure, peripheral arterial disease with angioplasty and thrombectomy of right anterior tibial artery, hypertension, dyslipidemia, history of GI bleed requiring blood transfusion, COPD, obstructive sleep apnea with CPAP use, type 2 diabetes mellitus, chronic kidney disease, anemia, and obesity. 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 He reports being scheduled to undergo a stress test approximately three weeks ago in Dr. Quintanilla's office, but reports he was unable to complete the exam due to physical limitations. Past Medical History Past medical history reviewed. No other significant than mentioned above. Past Surgical History Gastric bypass Cataract removal Cholecystectomy Partial left foot amputation Multiple toe amputations to right foot Family History: Patient reports no known family medical history. Family History Family history reviewed. Social History Patient has a 40 pack-year history, quit smoking approximately 10 years ago Patient admits to a remote history of methamphetamine and cocaine use, quit 25 years ago Admits to occasional alcohol use Allergies: Coded Allergies: NO KNOWN ALLERGIES (Unverified , 04/07/18) Home Meds Reported Medications Gabapentin (Gabapentin) 600 Mg Tab, PO BID 03/06/25 Nifedipine (Nifedipine Er) 30 Mg Tab, 1 TAB PO DAILY, #90 TAB 1 Refill 03/06/25 Hydralazine Hcl (Hydralazine Hcl) 50 Mg Tab, 50 MG PO TID for 30 Days, MG 03/06/25 Spironolactone (Spironolactone) 50 Mg Tab, 50 MG PO BID, TAB 03/06/25 Insulin Glargine (Basaglar Kwikpen) 100 Unit/Ml Inj, 50 UNIT SC HS, INJ 03/03/18 B-Complex W/ C & Folic Acid (Nephro-Edie Rx) 1 Tab Tb, 1 TAB PO DAILY 03/03/18 Metolazone (Metolazone) 10 Mg Tab, 10 MG PO DAILY for 30 Days, MG 03/03/18 Metoprolol Tartrate (Metoprolol Tartrate) 25 Mg Tab, 25 MG PO BID for 30 Days, MG 03/03/18 Ferric Citrate (Auryxia) 210 Mg Tab, 210 MG PO DAILY, TAB 03/03/18 [novalog] No Conflict Check, 8 UNITS SC lunch time 05/22/17 [novalog] No Conflict Check, 8 UNITS SC QPM 05/22/17 [novalog] No Conflict Check, 14 SC QAM 05/22/17 Nifedipine (Nifedipine Er) 60 Mg Tab, 1 TAB PO DAILY, #30 TAB 5 Refills 05/22/17 Bumetanide (Bumetanide) 2 Mg Tab, 1 TAB PO BID, #60 TAB 5 Refills 05/23/16 Atorvastatin Calcium (Lipitor) 40 Mg Tab, 40 MG PO HS, TAB 03/28/15 Aspirin (Aspir-81) 81 Mg Tab, 81 MG PO DAILY, TAB 03/28/15 Tamsulosin Hcl (Tamsulosin Hcl) 0.4 Mg Cap, 0.4 MG PO HS, CAP 03/28/15 Gabapentin (Gabapentin) 300 Mg Cap, 600 MG PO QID, CAP 03/28/15 Clopidogrel Bisulfate (Plavix) 75 Mg Tab, 75 MG PO DAILY, TAB 03/28/15 Home Meds Home medications reviewed. Current Medications Current Medications Medications (Trade) Dose Ordered Sig/Rashid Route PRN Reason Start Time Stop Time Status Last Admin Aspirin (Ecotrin Enteric Coated Tablet) 81 mg DAILY PO 03/07/25 10:00 03/07/25 10:00 Multivit/Ca Carb/ B Cmplx/FA/Prenat (Nephro-Edie Tablet) 1 tab DAILY PO 03/07/25 10:00 03/07/25 10:00 Clopidogrel Bisulfate (Plavix) 75 mg DAILY PO 03/07/25 10:00 03/07/25 10:01 Gabapentin (Neurontin Capsule) 600 mg QID PO 03/06/25 18:00 03/07/25 12:00 Tamsulosin HCl (Flomax) 0.4 mg HS PO 03/06/25 22:00 03/06/25 21:14 Atorvastatin Calcium (Lipitor) 40 mg HS PO 03/06/25 22:00 03/06/25 21:14 Patient Own Medication 210 mg DAILY PO 03/07/25 10:00 03/07/25 12:28 DC Insulin Glargine (Lantus) 50 units HS SC 03/06/25 22:00 03/06/25 22:00 Metolazone (Zaroxolyn) 10 mg DAILY PO 03/07/25 10:00 03/07/25 10:01 Nifedipine (Procardia Xl (Time-Release)) 30 mg DAILY PO 03/07/25 10:00 03/07/25 10:01 Heparin Sodium (Porcine) 5,000 units Q12HR SC 03/06/25 22:00 03/07/25 10:05 Sodium Chloride (Saline Lock Ns) 10 ml Q8HR IV 03/06/25 22:00 03/07/25 05:18 Docusate Sodium (Colace Capsule) 100 mg BIDPRN PRN PO FOR CONSTIPATION 03/06/25 16:15 Acetaminophen (Tylenol Tablet) 650 mg Q6HP PRN PO PAIN SCALE 1-3 OR TEMP>100.4 03/06/25 16:15 Acetaminophen/ Hydrocodone Bitart ([place] 5/325MG Tab) 1 tab Q4HP PRN PO MODERATE PAIN (4-6 PAIN SCALE) 03/06/25 16:15 Ondansetron HCl (Zofran) 4 mg Q4HP PRN IV NAUSEA / VOMITING 03/06/25 16:15 03/07/25 12:17 Diagnostic Test (Pha) (Accu-Chek Comfort Curve T) 1 strip ACHS 03/07/25 17:00 Insulin Human Regular (InsuLIN R) HS SC 03/07/25 22:00 Insulin Human Regular (InsuLIN R) AC SC 03/07/25 17:00 Dextrose 50 ml UD PRN IV Blood Sugar LESS THAN 60 03/07/25 12:30 Spironolactone (Aldactone) 50 mg BIDD PO 03/07/25 18:00 Review of Systems Constitutional: No symptom reported Ears, Nose, & Throat: No symptom reported Eyes: No symptom reported Neurological: No symptoms reported Pulmonary/Respiratory: No symptoms reported Cardiovascular: Chest pain Gastrointestinal: No symptom reported Genitourinary: No symptom reported Musculoskeletal: No symptom reported Skin: No symptom reported Psychiatric: No symptom reported Endocrine: No symptom reported Hematologic/Lymphatic: No symptom reported Vital Signs Vital Signs Date Time Temp Pulse Resp B/P (MAP) Pulse Ox O2 Delivery O2 Flow Rate FiO2 03/07/25 12:34 97.6 71 20 118/78 (91) 92 97.6 03/07/25 08:00 Room Air* 0 21 Physical Exam General Appearance: Cooperative. Well-developed. Well-nourished. No acute distress. Pulmonary/Respiratory: Clear, bilateral breaths sounds. Cardiovascular/Chest: Regular rate and rhythm. Peripheral Pulses: 2+ Radial (R). 2+ Radial (L). Abdominal Exam: Normal bowel sounds. Soft, non-tender. Ankle Exam: Negative ankle edema Lower extremities: Negative lower extremity edema Neuro/Mental Status: A/OX4, coherent. Thoughts/Psych: Normal thought pattern. Appropriate mood and affect. Good judgment and insight. Appearance: No acute distress. Skin Exam: Bilateral lower extremity discoloration. Partial left foot amputation. Multiple missing toes on right foot. Skin warm and dry. Labs/Diagnostic Data Labs Test 03/07/25 11:30 03/07/25 05:50 03/06/25 13:11 03/06/25 13:06 Range/Units POC Glucose 305 H 70-106 mg/dl White Blood Count 8.1 # 4.4-10.8 10^3/uL Red Blood Count 4.44 L 4.5-5.90 10^6/uL Hemoglobin 14.1 13.5-17.5 g/dL Hematocrit 41.2 41.0-53.0 % Mean Corpuscular Volume 92.9 80.0-100.0 fL Mean Corpuscular Hemoglobin 31.7 28.0-32.0 pg Mean Corpuscular Hemoglobin Concent 34.2 32.0-36.0 g/dL Red Cell Distribution Width 13.9 11.8-14.3 % Platelet Count 190 140-450 10^3/uL Mean Platelet Volume 9.4 6.9-10.8 fL Neutrophils (%) (Auto) 73.3 37.0-80.0 % Lymphocytes (%) (Auto) 15.7 10.0-50.0 % Monocytes (%) (Auto) 9.4 0.0-12.0 % Eosinophils (%) (Auto) 1.2 0.0-7.0 % Basophils (%) (Auto) 0.4 0.0-2.0 % Neutrophils # (Auto) 5.9 1.6-8.6 10 ^3/uL Lymphocytes # (Auto) 1.3 0.4-5.4 10 ^3/uL Monocytes # (Auto) 0.8 0-1.3 10 ^3/uL Eosinophils # (Auto) 0.1 0-0.8 10 ^3/uL Basophils # (Auto) 0 0-0.2 10 ^3/uL Nucleated Red Blood Cells 0.0 % Sodium Level 130 L 136-145 mmol/L Potassium Level 4.5 3.5-5.1 mmol/L Chloride Level 96 L 98-107 mmol/L Carbon Dioxide Level 26 20-31 mmol/L Anion Gap 8 5-15 Blood Urea Nitrogen 52 #H 9-23 mg/dL Creatinine 2.47 H 0.700-1.30 mg/dL Glomerular Filtration Rate Calc 28 >90 mL/min BUN/Creatinine Ratio 21.1 H 10.0-20.0 Serum Glucose 283 #H 74-106 mg/dL Calcium Level 8.9 8.7-10.4 mg/dL Total Bilirubin 0.7 0.2-1.0 mg/dL Aspartate Amino Transferase (AST) 33 13-40 U/L Alanine Aminotransferase (ALT) 32 7-40 U/L Alkaline Phosphatase 86 46-116 U/L Total Protein 6.9 5.7-8.2 g/dL Albumin 3.6 3.2-4.8 g/dL Troponin I High Sensitivity 29 </=54 ng/L Urine Color Light-yellow Yellow Urine Clarity Clear Clear Urine pH 5.5 5.0-9.0 Urine Specific [place] 1.008 1.001-1.035 Urine Protein Negative Negative Urine Ketones Negative Negative Urine Blood Negative Negative /uL Urine Nitrite Negative Negative Urine Bilirubin Negative Negative Urine Urobilinogen Normal Negative mg/dL Urine Leukocyte Esterase Negative Negative /uL Urine RBC <1 0 - 3 /hpf Urine Microscopic WBC < 1 0-3 /HPF Urine Squamous Epithelial Cells Few <5 /hpf Urine Bacteria Few H None Seen /hpf Urine Hyaline Casts Few 0 - 2 /lpf Urine Glucose Normal Normal mg/dL Test 03/06/25 12:05 Range/Units Differential Total Cells Counted 100.0 100 Neutrophils % (Manual) 85 H 37.0-80.0 Band Neutrophils % (Manual) 2 Lymphocytes % (Manual) 8 L 10.0-50.0 Monocytes % (Manual) 4 0-12 Eosinophils % (Manual) 1 0-7 Basophils % (Manual) 0 0.0-2.0 Metamyelocytes % (manual) 0 Myelocytes % (Manual) 0 Promyelocytes % (Manual) 0 Blast Cells % (Manual) 0 Reactive Lymphocytes 0 Platelet Estimate Adequate B-Type Natriuretic Peptide 33.27 0-100 pg/mL Assessment Chest pain, rule out coronary ischemia Coronary artery disease status post PTCA x2 PAULINA (on Plavix and aspirin) Peripheral arterial disease Hypertension Dyslipidemia History of GI bleed requiring blood transfusion COPD Obstructive sleep apnea with CPAP use Type 2 diabetes mellitus, uncontrolled (A1c 9.2%) Chronic kidney disease History of polysubstance abuse Morbid obesity Plan/Recommendation We will continue with the following plan/recommendations (Dr. Quintanilla): * Transthoracic echocardiogram to evaluate cardiac function * Previous transthoracic echocardiogram on 04/01/2024 reveals an EF of 60% * Chest pain protocol * HEART score: 5 points, moderate score * Continue with single antiplatelet therapy and lipid-lowering agent * Blood pressure control * Close Cardiac surveillance * Nuclear stress test Case discussed with . The patient is scheduled to undergo a nuclear stress test on 03/08/2025. Thank you for allowing us to care for this patient. Please call with any questions or concerns. Critical care time spent: 44 minutes This medical document was created using an electronic medical record system with voice recognition software and computerized dictation system. Although this document has been carefully reviewed, there might still be some phonetic and typographical errors. Occasional wrong-word or ``sound-alike substitutions may have occurred due to the inherent limitations of voice recognition software. These areas are purely typographical due to imperfections of the software programs and do not reflect any compromise in the patient's medical care. Please read the chart carefully and recognize, using context, where these substitutions have occurred. Plan discussed with: Patient NYHA Physical activity limitations: NA Date of Service: Mar 07, 2025 Billing Provider: ALESSIA VILLARREAL Cardiology Common Codes: 87554-[id number] INP/OBS CARE (High) Cardiology Consultation Codes: [id number] CONSULT <45MIN ALESSIA VILLARREAL [facility] Mar 07, 2025 13:31
--- NOTE | 2025-03-07 13:40 | DVHINCON2 ---
Date of service: Mar 07, [address] Noelle Medellin Reason for Consultation LUCIANO on CKD History of Present Illness 65 Y/O M with history of CKD III,DM,HTN, CAD s/p PCI, PAD, bilateral foot amputations, cholecystectomy, and gastric bypass presented with chief complaint of chest pain, progressively worsening. Troponin is neg x2. other labs show Cr: 2.62 mg/dl, baseline Cr is 1.22 mg/dl on . EF on Echo was 60 % on . He is admitted to rule out ACS. Nephrology consulted for LUCIANO on CKD Past Medical History CKD III,DM,HTN, CAD s/p PCI, PAD Past Surgical History bilateral foot amputations, cholecystectomy, and gastric bypass Allergies: Coded Allergies: NO KNOWN ALLERGIES (Unverified , 04/07/18) Home Meds Reported Medications Gabapentin (Gabapentin) 600 Mg Tab, PO BID 03/06/25 Nifedipine (Nifedipine Er) 30 Mg Tab, 1 TAB PO DAILY, #90 TAB 1 Refill 03/06/25 Hydralazine Hcl (Hydralazine Hcl) 50 Mg Tab, 50 MG PO TID for 30 Days, MG 03/06/25 Spironolactone (Spironolactone) 50 Mg Tab, 50 MG PO BID, TAB 03/06/25 Insulin Glargine (Basaglar Kwikpen) 100 Unit/Ml Inj, 50 UNIT SC HS, INJ 03/03/18 B-Complex W/ C & Folic Acid (Nephro-Edie Rx) 1 Tab Tb, 1 TAB PO DAILY 03/03/18 Metolazone (Metolazone) 10 Mg Tab, 10 MG PO DAILY for 30 Days, MG 03/03/18 Metoprolol Tartrate (Metoprolol Tartrate) 25 Mg Tab, 25 MG PO BID for 30 Days, MG 03/03/18 Ferric Citrate (Auryxia) 210 Mg Tab, 210 MG PO DAILY, TAB 03/03/18 [novalog] No Conflict Check, 8 UNITS SC lunch time 05/22/17 [novalog] No Conflict Check, 8 UNITS SC QPM 05/22/17 [novalog] No Conflict Check, 14 SC QAM 05/22/17 Nifedipine (Nifedipine Er) 60 Mg Tab, 1 TAB PO DAILY, #30 TAB 5 Refills 05/22/17 Bumetanide (Bumetanide) 2 Mg Tab, 1 TAB PO BID, #60 TAB 5 Refills 05/23/16 Atorvastatin Calcium (Lipitor) 40 Mg Tab, 40 MG PO HS, TAB 03/28/15 Aspirin (Aspir-81) 81 Mg Tab, 81 MG PO DAILY, TAB 03/28/15 Tamsulosin Hcl (Tamsulosin Hcl) 0.4 Mg Cap, 0.4 MG PO HS, CAP 03/28/15 Gabapentin (Gabapentin) 300 Mg Cap, 600 MG PO QID, CAP 03/28/15 Clopidogrel Bisulfate (Plavix) 75 Mg Tab, 75 MG PO DAILY, TAB 03/28/15 Current Medications Current Medications Medications (Trade) Dose Ordered Sig/Rashid Route PRN Reason Start Time Stop Time Status Last Admin Aspirin (Ecotrin Enteric Coated Tablet) 81 mg DAILY PO 03/07/25 10:00 03/07/25 10:00 Multivit/Ca Carb/ B Cmplx/FA/Prenat (Nephro-Edie Tablet) 1 tab DAILY PO 03/07/25 10:00 03/07/25 10:00 Clopidogrel Bisulfate (Plavix) 75 mg DAILY PO 03/07/25 10:00 03/07/25 10:01 Gabapentin (Neurontin Capsule) 600 mg QID PO 03/06/25 18:00 03/07/25 12:00 Tamsulosin HCl (Flomax) 0.4 mg HS PO 03/06/25 22:00 03/06/25 21:14 Atorvastatin Calcium (Lipitor) 40 mg HS PO 03/06/25 22:00 03/06/25 21:14 Patient Own Medication 210 mg DAILY PO 03/07/25 10:00 03/07/25 12:28 DC Insulin Glargine (Lantus) 50 units HS SC 03/06/25 22:00 03/06/25 22:00 Metolazone (Zaroxolyn) 10 mg DAILY PO 03/07/25 10:00 03/07/25 10:01 Nifedipine (Procardia Xl (Time-Release)) 30 mg DAILY PO 03/07/25 10:00 03/07/25 10:01 Heparin Sodium (Porcine) 5,000 units Q12HR SC 03/06/25 22:00 03/07/25 10:05 Sodium Chloride (Saline Lock Ns) 10 ml Q8HR IV 03/06/25 22:00 03/07/25 05:18 Docusate Sodium (Colace Capsule) 100 mg BIDPRN PRN PO FOR CONSTIPATION 03/06/25 16:15 Acetaminophen (Tylenol Tablet) 650 mg Q6HP PRN PO PAIN SCALE 1-3 OR TEMP>100.4 03/06/25 16:15 Acetaminophen/ Hydrocodone Bitart ([place] 5/325MG Tab) 1 tab Q4HP PRN PO MODERATE PAIN (4-6 PAIN SCALE) 03/06/25 16:15 Ondansetron HCl (Zofran) 4 mg Q4HP PRN IV NAUSEA / VOMITING 03/06/25 16:15 03/07/25 12:17 Diagnostic Test (Pha) (Accu-Chek Comfort Curve T) 1 strip ACHS 03/07/25 17:00 Insulin Human Regular (InsuLIN R) HS SC 03/07/25 22:00 Insulin Human Regular (InsuLIN R) AC SC 03/07/25 17:00 Dextrose 50 ml UD PRN IV Blood Sugar LESS THAN 60 03/07/25 12:30 Spironolactone (Aldactone) 50 mg BIDD PO 03/07/25 18:00 Family History: Patient reports no known family medical history. Review of Systems as per HPI, all other systems were reviewed and are negative. H&P Exam Vital Signs/I&O Vital Sign Date Time Temp Pulse Resp B/P (MAP) Pulse Ox O2 Delivery O2 Flow Rate FiO2 03/07/25 12:34 97.6 71 20 118/78 (91) 92 97.6 03/07/25 08:00 Room Air* 0 21 Intake and Output 03/06/25 03/07/25 19:00 07:00 Intake Total 1000 ml 650 ml Output Total 600 ml 1650 ml Balance 400 ml -1000 ml Intake Oral 650 ml IV Total 1000 ml Output Urine Total 600 ml 1650 ml # Voids 1 Physical Exam Gen : NAD, AAOx3 HEENT: NC, AT,No vision Rt eye, poor vision Lt eye Lungs: CTA b/l Cardiac: RRR, no murmur Abd: soft, no distention Ext: no edema Neuro: no focal deficits Labs/Diagnostic Data Labs/Diagnostic Data Laboratory Tests Test 03/07/25 11:30 03/07/25 05:50 03/06/25 21:52 8/23/25 13:11 Range/Units POC Glucose 305 H 371 H 70-106 mg/dl White Blood Count 8.1 # 4.4-10.8 10^3/uL Red Blood Count 4.44 L 4.5-5.90 10^6/uL Hemoglobin 14.1 13.5-17.5 g/dL Hematocrit 41.2 41.0-53.0 % Mean Corpuscular Volume 92.9 80.0-100.0 fL Mean Corpuscular Hemoglobin 31.7 28.0-32.0 pg Mean Corpuscular Hemoglobin Concent 34.2 32.0-36.0 g/dL Red Cell Distribution Width 13.9 11.8-14.3 % Platelet Count 190 140-450 10^3/uL Mean Platelet Volume 9.4 6.9-10.8 fL Neutrophils (%) (Auto) 73.3 37.0-80.0 % Lymphocytes (%) (Auto) 15.7 10.0-50.0 % Monocytes (%) (Auto) 9.4 0.0-12.0 % Eosinophils (%) (Auto) 1.2 0.0-7.0 % Basophils (%) (Auto) 0.4 0.0-2.0 % Neutrophils # (Auto) 5.9 1.6-8.6 10 ^3/uL Lymphocytes # (Auto) 1.3 0.4-5.4 10 ^3/uL Monocytes # (Auto) 0.8 0-1.3 10 ^3/uL Eosinophils # (Auto) 0.1 0-0.8 10 ^3/uL Basophils # (Auto) 0 0-0.2 10 ^3/uL Nucleated Red Blood Cells 0.0 % Sodium Level 130 L 136-145 mmol/L Potassium Level 4.5 3.5-5.1 mmol/L Chloride Level 96 L 98-107 mmol/L Carbon Dioxide Level 26 20-31 mmol/L Anion Gap 8 5-15 Blood Urea Nitrogen 52 #H 9-23 mg/dL Creatinine 2.47 H 0.700-1.30 mg/dL Glomerular Filtration Rate Calc 28 >90 mL/min BUN/Creatinine Ratio 21.1 H 10.0-20.0 Serum Glucose 283 #H 74-106 mg/dL Hemoglobin A1c 9.2 H <5.7 % A1C Calcium Level 8.9 8.7-10.4 mg/dL Magnesium Level 2.4 1.6-2.6 mg/dL Total Bilirubin 0.7 0.2-1.0 mg/dL Aspartate Amino Transferase (AST) 33 13-40 U/L Alanine Aminotransferase (ALT) 32 7-40 U/L Alkaline Phosphatase 86 46-116 U/L Total Protein 6.9 5.7-8.2 g/dL Albumin 3.6 3.2-4.8 g/dL Triglycerides Level 228 H < 150 mg/dL Cholesterol Level 94 < 200 mg/dL LDL Cholesterol 44 < 100 mg/dL HDL Cholesterol 28 L 40-59 mg/dL Troponin I High Sensitivity 29 </=54 ng/L Test 03/06/25 13:06 03/06/25 12:05 Range/Units Urine Color Light-yellow Yellow Urine Clarity Clear Clear Urine pH 5.5 5.0-9.0 Urine Specific [place] 1.008 1.001-1.035 Urine Protein Negative Negative Urine Ketones Negative Negative Urine Blood Negative Negative /uL Urine Nitrite Negative Negative Urine Bilirubin Negative Negative Urine Urobilinogen Normal Negative mg/dL Urine Leukocyte Esterase Negative Negative /uL Urine RBC <1 0 - 3 /hpf Urine Microscopic WBC < 1 0-3 /HPF Urine Squamous Epithelial Cells Few <5 /hpf Urine Bacteria Few H None Seen /hpf Urine Hyaline Casts Few 0 - 2 /lpf Urine Glucose Normal Normal mg/dL White Blood Count 13.4 H 4.4-10.8 10^3/uL Red Blood Count 4.87 4.5-5.90 10^6/uL Hemoglobin 15.4 13.5-17.5 g/dL Hematocrit 44.8 41.0-53.0 % Mean Corpuscular Volume 91.9 80.0-100.0 fL Mean Corpuscular Hemoglobin 31.6 28.0-32.0 pg Mean Corpuscular Hemoglobin Concent 34.4 32.0-36.0 g/dL Red Cell Distribution Width 13.9 11.8-14.3 % Platelet Count 209 140-450 10^3/uL Mean Platelet Volume 9.3 6.9-10.8 fL Neutrophils (%) (Auto) 37.0-80.0 % Lymphocytes (%) (Auto) 10.0-50.0 % Monocytes (%) (Auto) 0.0-12.0 % Basophils (%) (Auto) 0.0-2.0 % Neutrophils # (Auto) 1.6-8.6 10 ^3/uL Lymphocytes # (Auto) 0.4-5.4 10 ^3/uL Monocytes # (Auto) 0-1.3 10 ^3/uL Differential Total Cells Counted 100.0 100 Neutrophils % (Manual) 85 H 37.0-80.0 Band Neutrophils % (Manual) 2 Lymphocytes % (Manual) 8 L 10.0-50.0 Monocytes % (Manual) 4 0-12 Eosinophils % (Manual) 1 0-7 Basophils % (Manual) 0 0.0-2.0 Metamyelocytes % (manual) 0 Myelocytes % (Manual) 0 Promyelocytes % (Manual) 0 Blast Cells % (Manual) 0 Reactive Lymphocytes 0 Platelet Estimate Adequate Sodium Level 128 L 136-145 mmol/L Potassium Level 4.9 3.5-5.1 mmol/L Chloride Level 93 L 98-107 mmol/L Carbon Dioxide Level 24 20-31 mmol/L Anion Gap 11 5-15 Blood Urea Nitrogen 77 H 9-23 mg/dL Creatinine 2.62 H 0.700-1.30 mg/dL Glomerular Filtration Rate Calc 26 >90 mL/min BUN/Creatinine Ratio 29.4 H 10.0-20.0 Serum Glucose 126 H 74-106 mg/dL Calcium Level 9.3 8.7-10.4 mg/dL Troponin I High Sensitivity 32 </=54 ng/L B-Type Natriuretic Peptide 33.27 0-100 pg/mL Assessment Assessment: LUCIANO CKD III. Baseline Cr 1.22 mg/dl on Chest pain r/o ACS. neg serial troponin Hyponatremia DM, type II HTN CAD s/p PCI PAD bilateral foot amputations Plan: gfr slightly improved Good UO Stress test and Echo planned for tomorrow if plan for coronary angio, then hold Aldactone , and give gentle hydration Continue Aldactone Continue to Hold Bumex (he is on it at home) Follows with Dr. Alas Continue Nifedipine ER 30 mg daily cardiology consult daily BMP Strict I&Os Plan discussed with: Patient KHOI VASQUEZ MD Mar 07, 2025 13:40
[2025-03-07 13:50] LABS: Magnesium 2.4 mg/dL (1.6-2.6)
[2025-03-07 13:52] LABS: Cholesterol 94.0 mg/dL (< 200)
[2025-03-07 13:53] LABS: HDL Cholesterol 28.0 mg/dL (40-59); Triglycerides 228.0 mg/dL (< 150)
--- NOTE | 2025-03-07 13:58 | DVHPN2 ---
Subjective He was admitted yesterday for chest pain Troponin is negative No chest pain today He says he has a history of congestive heart failure and chronic kidney disease Changes from previous H/P or p: Changes Objective Vitals Vital Signs Date Time Temp Pulse Resp B/P (MAP) Pulse Ox O2 Delivery O2 Flow Rate FiO2 03/07/25 13:26 71 14 118/78 97 03/07/25 12:34 97.6 97.6 03/07/25 08:00 Room Air* 0 21 Intake/Output Intake and Output 03/07/25 07:00 Intake Total 1650 ml Output Total 2250 ml Balance -600 ml Intake Oral 650 ml IV Total 1000 ml Output Urine Total 2250 ml # Voids 1 General Appearance: Alert, Oriented X3, Cooperative, No acute distress Lungs: Clear to auscultation, Normal air movement Cardiovascular: Regular rate, Normal S1, Normal S2 Abdomen: Normal bowel sounds, Soft, No tenderness Extremities: No edema Medications Current Medications Medications Dose Ordered Sig/Rashid Route Start Time Stop Time Status Last Admin Dose Admin Aspirin 81 mg DAILY PO 03/07/25 10:00 03/07/25 10:00 81 MG Multivit/Ca Carb/ B Cmplx/FA/Prenat 1 tab DAILY PO 03/07/25 10:00 03/07/25 10:00 1 TAB Clopidogrel Bisulfate 75 mg DAILY PO 03/07/25 10:00 03/07/25 10:01 75 MG Gabapentin 600 mg QID PO 03/06/25 18:00 03/07/25 12:00 600 MG Tamsulosin HCl 0.4 mg HS PO 03/06/25 22:00 03/06/25 21:14 0.4 MG Atorvastatin Calcium 40 mg HS PO 03/06/25 22:00 03/06/25 21:14 40 MG Insulin Glargine 50 units HS SC 03/06/25 22:00 03/06/25 22:00 50 UNITS Metolazone 10 mg DAILY PO 03/07/25 10:00 03/07/25 10:01 10 MG Nifedipine 30 mg DAILY PO 03/07/25 10:00 03/07/25 10:01 30 MG Heparin Sodium (Porcine) 5,000 units Q12HR SC 03/06/25 22:00 03/07/25 10:05 5,000 UNITS Sodium Chloride 10 ml Q8HR IV 03/06/25 22:00 03/07/25 05:18 10 ML Docusate Sodium 100 mg BIDPRN PRN PO 03/06/25 16:15 Acetaminophen 650 mg Q6HP PRN PO 03/06/25 16:15 Acetaminophen/ Hydrocodone Bitart 1 tab Q4HP PRN PO 03/06/25 16:15 Ondansetron HCl 4 mg Q4HP PRN IV 03/06/25 16:15 03/07/25 12:17 4 MG Diagnostic Test (Pha) 1 strip ACHS 03/07/25 17:00 Insulin Human Regular HS SC 03/07/25 22:00 Insulin Human Regular AC SC 03/07/25 17:00 Dextrose 50 ml UD PRN IV 03/07/25 12:30 Spironolactone 50 mg BIDD PO 03/07/25 18:00 Laboratory Results Laboratory Tests 03/07/25 05:50 Chemistry Test 03/07/25 05:50 Albumin 3.6 g/dL (3.2-4.8) Calcium Level 8.9 mg/dL (8.7-10.4) Magnesium Level 2.4 mg/dL (1.6-2.6) Total Protein 6.9 g/dL (5.7-8.2) Lipid panel Test 03/07/25 05:50 Cholesterol Level 94 mg/dL (< 200) HDL Cholesterol 28 mg/dL (40-59) L Triglycerides Level 228 mg/dL (< 150) H LFT Test 03/07/25 05:50 Alanine Aminotransferase (ALT) 32 U/L (7-40) Alkaline Phosphatase 86 U/L (46-116) Aspartate Amino Transferase (AST) 33 U/L (13-40) Total Bilirubin 0.7 mg/dL (0.2-1.0) HgA1c, TSH Test 03/07/25 05:50 Hemoglobin A1c Pending Thyroid Stimulating Hormone (TSH) Pending Urinalysis Test 03/06/25 13:06 Urine Color Light-yellow (Yellow) Urine Clarity Clear (Clear) Urine pH 5.5 (5.0-9.0) Urine Specific [place] 1.008 (1.001-1.035) Urine Protein Negative (Negative) Urine Ketones Negative (Negative) Urine Blood Negative /uL (Negative) Urine Nitrite Negative (Negative) Urine Bilirubin Negative (Negative) Urine Urobilinogen Normal mg/dL (Negative) Urine Leukocyte Esterase Negative /uL (Negative) Urine RBC <1 /hpf (0 - 3) Urine Microscopic WBC < 1 /HPF (0-3) Urine Squamous Epithelial Cells Few /hpf (<5) Urine Bacteria Few /hpf (None Seen) H Urine Hyaline Casts Few /lpf (0 - 2) Urine Glucose Normal mg/dL (Normal) Assessment/Plan Assessment/Plan Chest pain Coronary artery disease status post PTCA x2 PAULINA (on Plavix and aspirin) Chronic kidney disease stage 3 Hyponatremia Type 2 diabetes Hypertension Bilateral foot amputations Peripheral arterial disease Dyslipidemia History of GI bleed requiring blood transfusion COPD Obstructive sleep apnea with CPAP use History of polysubstance abuse Morbid obesity Plan Cardiology consult Nephrology consult Troponins are negative Stress test for tomorrow Resume diet today BiPAP at night Continue aspirin and Plavix Lipitor Bumex Spironolactone Nifedipine Metolazone Full code Advance directives discussed for 20 minutes Plan discussed with: Patient My Orders Orders - DEANGELO TY MD Procedure Category Date Status Time Consistent DIET 03/07/25 Transmitted Carb(Ccho)Diabetes Lunch Npo (Nothing By DIET 03/08/25 Transmitted Mouth) Diet Breakfast Glucose Blood PHA 03/07/25 In Process (Accu-Chek Comfort 17:00 Insulin R (Human) PHA 03/07/25 In Process (Insulin R) 22:00 Insulin R (Human) PHA 03/07/25 In Process (Insulin R) 17:00 Dextrose 50% Syringe PHA 03/07/25 In Process 12:30 Spironolactone PHA 03/07/25 In Process (Aldactone) 18:00 * Cardiology Consult CONS 03/07/25 Transmitted 12:27 Bipap/Cpap For Sleep RT 03/07/25 Logged Apnea 12:28 Date of Service: Mar 07, 2025 Billing Provider: DEANGELO TY MD Common Visit Codes: [id number] INP/OBS CARE(HIGH) Secondary Visit Codes: [id number] CARE PLAN 30 MINUTES DEANGELO TY MD Mar 07, 2025 13:58
[2025-03-07] MEDS: ACCU-CHEK COMFORT CURVE STRIP VI SCH (16:20)
[2025-03-07] MEDS: SPIRONOLACTONE 25 MG TAB PO SCH (16:51)
[2025-03-07] MEDS: InsuLIN REG 1unit/0.01ml Soln (100units/ml) SC SCH ×2 (16:58→22:42)
--- NOTE | 2025-03-07 19:24 | ECG ---
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
[2025-03-07] MEDS: INSULIN LANTUS (GLARGINE) 1 /0.01ml (100units/ml) SC ONE (23:35)
[2025-03-08] VITALS (9 sets, daily range): BP systolic 102–148; BP diastolic 53–78; PULSE 80–93; RESP 17–20; TEMP 97.8–98.9; O2SAT 92–97
[2025-03-08 06:32] LABS: Hematocrit 41.0 % (41.0-53.0); Hemoglobin 14.2 g/dL (13.5-17.5); Mean Corpuscular Hemoglobin 32.1 pg (28.0-32.0); Mean Corpuscular Volume 92.7 fL (80.0-100.0); Nucleated Red Blood Cells % 0.1 %
[2025-03-08 06:49] LABS: Alanine Aminotransferase 31 U/L (7-40); Albumin 3.6 g/dL (3.2-4.8); Alkaline Phosphatase 81 U/L (46-116); Anion Gap 8 (5-15); BUN/Creatinine Ratio 36.4 (10.0-20.0); Carbon Dioxide 26 mmol/L (20-31); Chloride 101 mmol/L (98-107); Cholesterol 83 mg/dL (< 200); Magnesium 2.3 mg/dL (1.6-2.6); Potassium 4.7 mmol/L (3.5-5.1); Total Protein 6.7 g/dL (5.7-8.2); Triglycerides 144 mg/dL (< 150)
[2025-03-08 06:50] LABS: Bilirubin, Total 0.4 mg/dL (0.2-1.0)
[2025-03-08 06:52] LABS: HDL Cholesterol 30 mg/dL (40-59)
[2025-03-08 06:53] LABS: Calcium 8.7 mg/dL (8.7-10.4); Glucose 143 mg/dL (74-106); Sodium 135 mmol/L (136-145)
[2025-03-08 07:03] LABS: Blood Urea Nitrogen 80 mg/dL (9-23)
--- NOTE | 2025-03-08 09:08 | DVHSR ---
APPROVED REPORT EXAM: Two-dimensional and M-mode echocardiogram with Doppler and color Doppler. Blood Pressure: 118/78 mmHg INDICATION Eval cardiac function RISK FACTORS Height: 69, Weight: 242 DIMENSIONS LVDd5.0 (3.8-5.7cm)LA (2D)4.1 (1.9-4.0cm)Aortic Root3.5 (2.0-3.7cm) LVDs3.5 (2.5-4.0cm)LA (MM) (1.9-4.0cm)Aortic Cusp Exc1.5 (1.5-2.0cm) EF (%) 55.0 (55-70%)Rt. Atrium4.3 (1.9-4.0cm)Asc. Aorta cm Mitral Valve MitralMitral Stenosis E wave0.72m/sMV Mean GR.mmHg A wave0.95m/sMV Peak GR.mmHg E/A ratio0.82D MVAcm2 DECEL [id number] 1/2 Ciss17ba IVRTmsDop MVA4.26cm2 Aortic Valve Aortic ValveAortic Stenosis V10.84m/Connie Mean GR.7mmHg V21.74m/Connie Peak GR.12mmHg LVOT Diameter2.6 (1.8-2.4cm)Doppler AVA2.56cm2 AI P 1/2 Hurp357.74ms Pulmonic Valve V21.11m/s Tricuspid Valve TR Velocity2.49m/s [id number] Other Information Technically limited study due to body habitus. Conclusion lvef 50-55% moderate LVH RV not well seen limited view no severe valve abnomrality noted
--- NOTE | 2025-03-08 09:09 | DVHPN2 ---
Progress Note - Dictate Date Seen: Mar 08, 2025 Medical Necessity Reason Pt with a Central, PICC or Fol: No Subjective No acute issues. Patient is scheduled for stress test and echocardiogram today. vital signs Vital Sign Date Time Temp Pulse Resp B/P (MAP) Pulse Ox O2 Delivery O2 Flow Rate FiO2 03/08/25 05:00 97.9 83 18 139/78 (98) 93 97.9 03/07/25 23:12 Facial BiPAP Mask 30 03/07/25 20:00 0 Total Intake and Output 03/07/25 03/07/25 03/08/25 15:00 23:00 07:00 Intake Total 740 ml 240 ml Output Total 1500 ml 300 ml Balance -760 ml -60 ml medications Current Medications Medications Dose Ordered Sig/Rashid Route Start Time Stop Time Status Last Admin Dose Admin Aspirin 81 mg DAILY PO 03/07/25 10:00 03/07/25 10:00 81 MG Multivit/Ca Carb/ B Cmplx/FA/Prenat 1 tab DAILY PO 03/07/25 10:00 03/07/25 10:00 1 TAB Gabapentin 600 mg QID PO 03/06/25 18:00 03/07/25 22:30 600 MG Tamsulosin HCl 0.4 mg HS PO 03/06/25 22:00 03/07/25 22:30 0.4 MG Atorvastatin Calcium 40 mg HS PO 03/06/25 22:00 03/07/25 22:30 40 MG Insulin Glargine 50 units HS SC 03/06/25 22:00 03/06/25 22:00 50 UNITS Metolazone 10 mg DAILY PO 03/07/25 10:00 03/07/25 10:01 10 MG Nifedipine 30 mg DAILY PO 03/07/25 10:00 03/07/25 10:01 30 MG Heparin Sodium (Porcine) 5,000 units Q12HR SC 03/06/25 22:00 03/07/25 22:32 5,000 UNITS Sodium Chloride 10 ml Q8HR IV 03/06/25 22:00 03/07/25 23:05 10 ML Docusate Sodium 100 mg BIDPRN PRN PO 03/06/25 16:15 Acetaminophen 650 mg Q6HP PRN PO 03/06/25 16:15 Acetaminophen/ Hydrocodone Bitart 1 tab Q4HP PRN PO 03/06/25 16:15 Ondansetron HCl 4 mg Q4HP PRN IV 03/06/25 16:15 03/07/25 12:17 4 MG Diagnostic Test (Pha) 1 strip ACHS 03/07/25 17:00 03/08/25 06:23 1 STRIP Insulin Human Regular HS SC 03/07/25 22:00 03/07/25 22:42 4 UNITS Insulin Human Regular AC SC 03/07/25 17:00 03/07/25 16:58 15 UNITS Dextrose 50 ml UD PRN IV 03/07/25 12:30 Spironolactone 50 mg BIDD PO 03/07/25 18:00 03/07/25 16:51 50 MG Bumetanide 2 mg DAILY PO 03/08/25 10:00 objective Gen : NAD, AAOx3 HEENT: NC, AT,No vision Rt eye, poor vision Lt eye Lungs: CTA b/l Cardiac: RRR, no murmur Abd: soft, no distention Ext: no edema Neuro: no focal deficits laboratory and microbiology Laboratory Tests 03/08/25 05:28 Test 03/08/25 05:28 Range/Units Serum Glucose 143 #H 74-106 mg/dL Problem List Acute kidney injury superimposed on Chronic kidney disease stage IIIA[baseline creatinine 1.2 in March 2024] Chest pain r/o ACS. neg serial troponin Hyponatremia DM, type II HTN CAD s/p PCI PAD bilateral foot amputations Assessment/Plan Hold metolazone for now. Continue Bumex and Aldactone. Patient with no evidence of fluid overload. We will follow up on the results of the stress test and echocardiogram. Echocardiogram done last year had shown an EF of 60%. We will follow up on BMP in a.m.. Dietary Evaluation Review Comments: 1) If patient remains NPO > 7 days, consider EN/TPN to meet at least 75% estimated daily needs 2) Advance to 60g CCHO renal cardiac diet when medically feasible 3) Collect HbA1c 4) Refer to outpatient RD/CDCES for weight management 5) Follow-up with cardiology and nephrology 6) Continue to monitor I&O, labs, and skin integrity Expected Outcomes/Goals: 1) patient to receive nutritional support within 7 days of NPO status 2) wounds and labs to improve 3) diet to advance 4) gradual wt loss 5) f/u in 3-5 days Plan discussed with: Patient KAJAL HOLLOWAY MD Mar 08, 2025 09:09
--- NOTE | 2025-03-08 09:13 | ECG ---
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
[2025-03-08] MEDS: REGADENOSON 0.4 MG/5 ML SYRG IV ONE ×2 (10:36→10:52)
--- NOTE | 2025-03-08 11:10 | DVHPN2 ---
Subjective No chest pain Changes from previous H/P or p: Changes Objective Vitals Vital Signs Date Time Temp Pulse Resp B/P (MAP) Pulse Ox O2 Delivery O2 Flow Rate FiO2 03/08/25 09:00 98.1 80 17 102/54 (70) 95 98.1 03/08/25 08:00 Room Air* 0 21 Intake/Output Intake and Output 03/08/25 07:00 Intake Total 980 ml Output Total 1800 ml Balance -820 ml Intake Oral 980 ml Output Urine Total 1800 ml General Appearance: Alert, Oriented X3, Cooperative, No acute distress Lungs: Clear to auscultation, Normal air movement Cardiovascular: Regular rate, Normal S1, Normal S2 Abdomen: Normal bowel sounds, Soft, No tenderness Extremities: No edema Medications Current Medications Medications Dose Ordered Sig/Rashid Route Start Time Stop Time Status Last Admin Dose Admin Aspirin 81 mg DAILY PO 03/07/25 10:00 03/07/25 10:00 81 MG Multivit/Ca Carb/ B Cmplx/FA/Prenat 1 tab DAILY PO 03/07/25 10:00 03/07/25 10:00 1 TAB Gabapentin 600 mg QID PO 03/06/25 18:00 03/07/25 22:30 600 MG Tamsulosin HCl 0.4 mg HS PO 03/06/25 22:00 03/07/25 22:30 0.4 MG Atorvastatin Calcium 40 mg HS PO 03/06/25 22:00 03/07/25 22:30 40 MG Insulin Glargine 50 units HS SC 03/06/25 22:00 03/06/25 22:00 50 UNITS Nifedipine 30 mg DAILY PO 03/07/25 10:00 03/07/25 10:01 30 MG Heparin Sodium (Porcine) 5,000 units Q12HR SC 03/06/25 22:00 03/07/25 22:32 5,000 UNITS Sodium Chloride 10 ml Q8HR IV 03/06/25 22:00 03/07/25 23:05 10 ML Docusate Sodium 100 mg BIDPRN PRN PO 03/06/25 16:15 Acetaminophen 650 mg Q6HP PRN PO 03/06/25 16:15 Acetaminophen/ Hydrocodone Bitart 1 tab Q4HP PRN PO 03/06/25 16:15 Ondansetron HCl 4 mg Q4HP PRN IV 03/06/25 16:15 03/07/25 12:17 4 MG Diagnostic Test (Pha) 1 strip ACHS 03/07/25 17:00 03/08/25 06:23 1 STRIP Insulin Human Regular HS SC 03/07/25 22:00 03/07/25 22:42 4 UNITS Insulin Human Regular AC SC 03/07/25 17:00 03/07/25 16:58 15 UNITS Dextrose 50 ml UD PRN IV 03/07/25 12:30 Spironolactone 50 mg BIDD PO 03/07/25 18:00 03/07/25 16:51 50 MG Bumetanide 2 mg DAILY PO 03/08/25 10:00 Laboratory Results Laboratory Tests 03/08/25 05:28 Chemistry Test 03/08/25 05:28 Albumin 3.6 g/dL (3.2-4.8) Calcium Level 8.7 mg/dL (8.7-10.4) Magnesium Level 2.3 mg/dL (1.6-2.6) Total Protein 6.7 g/dL (5.7-8.2) Lipid panel Test 03/08/25 05:28 Cholesterol Level 83 mg/dL (< 200) HDL Cholesterol 30 mg/dL (40-59) L Triglycerides Level 144 mg/dL (< 150) LFT Test 03/08/25 05:28 Alanine Aminotransferase (ALT) 31 U/L (7-40) Alkaline Phosphatase 81 U/L (46-116) Aspartate Amino Transferase (AST) 31 U/L (13-40) Total Bilirubin 0.4 mg/dL (0.2-1.0) HgA1c, TSH Test 03/08/25 05:28 Thyroid Stimulating Hormone (TSH) 0.50 uIU/mL (0.55-4.78) L Urinalysis Test 03/06/25 13:06 Urine Color Light-yellow (Yellow) Urine Clarity Clear (Clear) Urine pH 5.5 (5.0-9.0) Urine Specific [place] 1.008 (1.001-1.035) Urine Protein Negative (Negative) Urine Ketones Negative (Negative) Urine Blood Negative /uL (Negative) Urine Nitrite Negative (Negative) Urine Bilirubin Negative (Negative) Urine Urobilinogen Normal mg/dL (Negative) Urine Leukocyte Esterase Negative /uL (Negative) Urine RBC <1 /hpf (0 - 3) Urine Microscopic WBC < 1 /HPF (0-3) Urine Squamous Epithelial Cells Few /hpf (<5) Urine Bacteria Few /hpf (None Seen) H Urine Hyaline Casts Few /lpf (0 - 2) Urine Glucose Normal mg/dL (Normal) Assessment/Plan Assessment/Plan Chest pain Coronary artery disease status post PTCA x2 PAULINA (on Plavix and aspirin) Chronic kidney disease stage 3 Hyponatremia Type 2 diabetes Hypertension Bilateral foot amputations Peripheral arterial disease Dyslipidemia History of GI bleed requiring blood transfusion COPD Obstructive sleep apnea with CPAP use History of polysubstance abuse Morbid obesity Plan Cardiology consult Nephrology consult Troponins are negative Stress test for tomorrow Resume diet today BiPAP at night Continue aspirin and Plavix Lipitor Bumex Spironolactone Nifedipine Metolazone Full code Advance directives discussed for 20 minutes 03/08/2025 Continue Bumex and Aldactone DC metolazone Cardiology consult Stress test pending Echocardiogram showed ejection fraction 50-55% with moderate LVH Monitor closely Plan discussed with: Patient My Orders Orders - DEANGELO TY MD Procedure Category Date Status Time Npo (Nothing By DIET 03/08/25 Transmitted Mouth) Diet Breakfast Glucose Blood PHA 03/07/25 In Process (Accu-Chek Comfort 17:00 Insulin R (Human) PHA 03/07/25 In Process (Insulin R) 22:00 Insulin R (Human) PHA 03/07/25 In Process (Insulin R) 17:00 Dextrose 50% Syringe PHA 03/07/25 In Process 12:30 Spironolactone PHA 03/07/25 In Process (Aldactone) 18:00 * Cardiology Consult CONS 03/07/25 Transmitted 12:27 Bipap/Cpap For Sleep RT 03/07/25 Logged Apnea 12:28 Bumetanide Tablet PHA 03/08/25 In Process (Bumex Tablet) 10:00 Date of Service: Mar 08, 2025 Billing Provider: DEANGELO TY MD Common Visit Codes: [id number] INP/OBS CARE(HIGH) DEANGELO TY MD Mar 08, 2025 11:10
[2025-03-08] MEDS: BUMETANIDE 1 MG TAB PO SCH (12:08)
[2025-03-08] MEDS: INSULIN LANTUS (GLARGINE) 1 /0.01ml (100units/ml) SC SCH (21:58)
[2025-03-09] VITALS (7 sets, daily range): BP systolic 127–140; BP diastolic 64–83; PULSE 64–87; RESP 17–20; TEMP 36.7; O2SAT 95–98
[2025-03-09 07:30] LABS: Hematocrit 40.4 % (41.0-53.0); Hemoglobin 14.0 g/dL (13.5-17.5); Mean Corpuscular Hemoglobin 32.1 pg (28.0-32.0); Mean Corpuscular Volume 92.9 fL (80.0-100.0); Nucleated Red Blood Cells % 0.1 %
[2025-03-09 07:42] LABS: Alanine Aminotransferase 27 U/L (7-40); Albumin 3.8 g/dL (3.2-4.8); Alkaline Phosphatase 73 U/L (46-116); Anion Gap 7 (5-15); BUN/Creatinine Ratio 25.1 (10.0-20.0); Carbon Dioxide 26 mmol/L (20-31); Chloride 103 mmol/L (98-107); Glucose 102 mg/dL (74-106); Potassium 4.7 mmol/L (3.5-5.1); Total Protein 7.1 g/dL (5.7-8.2)
[2025-03-09 07:43] LABS: Bilirubin, Total 0.3 mg/dL (0.2-1.0); Blood Urea Nitrogen 49 mg/dL (9-23); Calcium 8.7 mg/dL (8.7-10.4); Sodium 136 mmol/L (136-145)
[2025-03-09] MEDS: DOCUSATE SOD 100 MG CAP PO PRN (09:20)
--- NOTE | 2025-03-09 09:40 | DVHPN2 ---
Progress Note - Dictate Date Seen: Mar 09, 2025 Medical Necessity Reason Pt with a Central, PICC or Fol: No Subjective No acute issues. Awaiting results of stress test vital signs Vital Sign Date Time Temp Pulse Resp B/P (MAP) Pulse Ox O2 Delivery O2 Flow Rate FiO2 03/09/25 09:14 132/83 03/09/25 08:00 18 96 Room Air* 0 21 03/09/25 05:00 97.9 87 97.9 Total Intake and Output 03/08/25 03/08/25 03/09/25 15:00 23:00 07:00 Intake Total 300 ml 900 ml Output Total 1050 ml 980 ml Balance -750 ml -80 ml medications Current Medications Medications Dose Ordered Sig/Rashid Route Start Time Stop Time Status Last Admin Dose Admin Aspirin 81 mg DAILY PO 03/07/25 10:00 03/09/25 09:14 81 MG Multivit/Ca Carb/ B Cmplx/FA/Prenat 1 tab DAILY PO 03/07/25 10:00 03/09/25 09:14 1 TAB Gabapentin 600 mg QID PO 03/06/25 18:00 03/09/25 06:20 600 MG Tamsulosin HCl 0.4 mg HS PO 03/06/25 22:00 03/08/25 21:13 0.4 MG Atorvastatin Calcium 40 mg HS PO 03/06/25 22:00 03/08/25 21:13 40 MG Nifedipine 30 mg DAILY PO 03/07/25 10:00 03/09/25 09:14 30 MG Heparin Sodium (Porcine) 5,000 units Q12HR SC 03/06/25 22:00 03/09/25 09:19 5,000 UNITS Sodium Chloride 10 ml Q8HR IV 03/06/25 22:00 03/09/25 06:21 10 ML Docusate Sodium 100 mg BIDPRN PRN PO 03/06/25 16:15 03/09/25 09:20 100 MG Acetaminophen 650 mg Q6HP PRN PO 03/06/25 16:15 Acetaminophen/ Hydrocodone Bitart 1 tab Q4HP PRN PO 03/06/25 16:15 Ondansetron HCl 4 mg Q4HP PRN IV 03/06/25 16:15 03/07/25 12:17 4 MG Diagnostic Test (Pha) 1 strip ACHS 03/07/25 17:00 03/09/25 06:21 1 STRIP Insulin Human Regular HS SC 03/07/25 22:00 03/08/25 22:00 6 UNITS Insulin Human Regular AC SC 03/07/25 17:00 03/08/25 16:51 15 UNITS Dextrose 50 ml UD PRN IV 03/07/25 12:30 Spironolactone 50 mg BIDD PO 03/07/25 18:00 03/09/25 06:20 50 MG Bumetanide 2 mg DAILY PO 03/08/25 10:00 03/09/25 09:14 2 MG Insulin Glargine 50 units DAILY@2100 SC 03/08/25 21:00 03/08/25 21:58 50 UNITS objective Gen : NAD, AAOx3 HEENT: [place], AT,No vision Rt eye, poor vision Lt eye Lungs: CTA b/l Cardiac: RRR, no murmur Abd: soft, no distention Ext: no edema Neuro: no focal deficits laboratory and microbiology Laboratory Tests 03/09/25 06:52 Test 03/09/25 06:52 Range/Units Serum Glucose 102 74-106 mg/dL Problem List Acute kidney injury superimposed on Chronic kidney disease stage IIIA[baseline creatinine 1.2 in March 2024] Chest pain r/o ACS. neg serial troponin Hyponatremia DM, type II HTN CAD s/p PCI PAD bilateral foot amputations Assessment/Plan GFR with improvement . Hold metolazone for now. Continue Bumex and Aldactone. Patient with no evidence of fluid overload. Await results of stress test. Echocardiogram showing EF of 50 -55 % Out patient f/up Dietary Evaluation Review Comments: 1) If patient remains NPO > 7 days, consider EN/TPN to meet at least 75% estimated daily needs 2) Advance to 60g CCHO renal cardiac diet when medically feasible 3) Collect HbA1c 4) Refer to outpatient RD/CDCES for weight management 5) Follow-up with cardiology and nephrology 6) Continue to monitor I&O, labs, and skin integrity Expected Outcomes/Goals: 1) patient to receive nutritional support within 7 days of NPO status 2) wounds and labs to improve 3) diet to advance 4) gradual wt loss 5) f/u in 3-5 days Plan discussed with: Patient KAJAL HOLLOWAY MD Mar 09, 2025 09:40
--- NOTE | 2025-03-09 10:41 | DVHPN2 ---
Subjective No chest pain No new complaints Stress test is done, result is pending Changes from previous H/P or p: Changes Objective Vitals Vital Signs Date Time Temp Pulse Resp B/P (MAP) Pulse Ox O2 Delivery O2 Flow Rate FiO2 03/09/25 09:14 132/83 03/09/25 09:00 98.1 84 17 95 98.1 03/09/25 08:00 Room Air* 0 21 Intake/Output Intake and Output 03/09/25 07:00 Intake Total 1200 ml Output Total 2030 ml Balance -830 ml Intake Oral 1200 ml Output Urine Total 2030 ml General Appearance: Alert, Oriented X3, Cooperative, No acute distress Lungs: Clear to auscultation, Normal air movement Cardiovascular: Regular rate, Normal S1, Normal S2 Abdomen: Normal bowel sounds, Soft, No tenderness Extremities: No edema Medications Current Medications Medications Dose Ordered Sig/Rashid Route Start Time Stop Time Status Last Admin Dose Admin Aspirin 81 mg DAILY PO 03/07/25 10:00 03/09/25 09:14 81 MG Multivit/Ca Carb/ B Cmplx/FA/Prenat 1 tab DAILY PO 03/07/25 10:00 03/09/25 09:14 1 TAB Gabapentin 600 mg QID PO 03/06/25 18:00 03/09/25 06:20 600 MG Tamsulosin HCl 0.4 mg HS PO 03/06/25 22:00 03/08/25 21:13 0.4 MG Atorvastatin Calcium 40 mg HS PO 03/06/25 22:00 03/08/25 21:13 40 MG Nifedipine 30 mg DAILY PO 03/07/25 10:00 03/09/25 09:14 30 MG Heparin Sodium (Porcine) 5,000 units Q12HR SC 03/06/25 22:00 03/09/25 09:19 5,000 UNITS Sodium Chloride 10 ml Q8HR IV 03/06/25 22:00 03/09/25 06:21 10 ML Docusate Sodium 100 mg BIDPRN PRN PO 03/06/25 16:15 03/09/25 09:20 100 MG Acetaminophen 650 mg Q6HP PRN PO 03/06/25 16:15 Acetaminophen/ Hydrocodone Bitart 1 tab Q4HP PRN PO 03/06/25 16:15 Ondansetron HCl 4 mg Q4HP PRN IV 03/06/25 16:15 03/07/25 12:17 4 MG Diagnostic Test (Pha) 1 strip ACHS 03/07/25 17:00 03/09/25 06:21 1 STRIP Insulin Human Regular HS [place] 03/07/25 22:00 03/08/25 22:00 6 UNITS Insulin Human Regular AC SC 03/07/25 17:00 03/08/25 16:51 15 UNITS Dextrose 50 ml UD PRN IV 03/07/25 12:30 Spironolactone 50 mg BIDD PO 03/07/25 18:00 03/09/25 06:20 50 MG Bumetanide 2 mg DAILY PO 03/08/25 10:00 03/09/25 09:14 2 MG Insulin Glargine 50 units DAILY@2100 [place] 03/08/25 21:00 03/08/25 21:58 50 UNITS Laboratory Results Laboratory Tests 03/09/25 06:52 Chemistry Test 03/09/25 06:52 Albumin 3.8 g/dL (3.2-4.8) Calcium Level 8.7 mg/dL (8.7-10.4) Total Protein 7.1 g/dL (5.7-8.2) LFT Test 03/09/25 06:52 Alanine Aminotransferase (ALT) 27 U/L (7-40) Alkaline Phosphatase 73 U/L (46-116) Aspartate Amino Transferase (AST) 32 U/L (13-40) Total Bilirubin 0.3 mg/dL (0.2-1.0) Urinalysis Test 03/06/25 13:06 Urine Color Light-yellow (Yellow) Urine Clarity Clear (Clear) Urine pH 5.5 (5.0-9.0) Urine Specific [place] 1.008 (1.001-1.035) Urine Protein Negative (Negative) Urine Ketones Negative (Negative) Urine Blood Negative /uL (Negative) Urine Nitrite Negative (Negative) Urine Bilirubin Negative (Negative) Urine Urobilinogen Normal mg/dL (Negative) Urine Leukocyte Esterase Negative /uL (Negative) Urine RBC <1 /hpf (0 - 3) Urine Microscopic WBC < 1 /HPF (0-3) Urine Squamous Epithelial Cells Few /hpf (<5) Urine Bacteria Few /hpf (None Seen) H Urine Hyaline Casts Few /lpf (0 - 2) Urine Glucose Normal mg/dL (Normal) Assessment/Plan Assessment/Plan Chest pain Coronary artery disease status post PTCA x2 PAULINA (on Plavix and aspirin) Chronic kidney disease stage 3 Hyponatremia Type 2 diabetes Hypertension Bilateral foot amputations Peripheral arterial disease Dyslipidemia History of GI bleed requiring blood transfusion COPD Obstructive sleep apnea with CPAP use History of polysubstance abuse Morbid obesity Plan Cardiology consult Nephrology consult Troponins are negative Stress test for tomorrow Resume diet today BiPAP at night Continue aspirin and Plavix Lipitor Bumex Spironolactone Nifedipine Metolazone Full code Advance directives discussed for 20 minutes 03/08/2025 Continue Bumex and Aldactone DC metolazone Cardiology consult Stress test pending Echocardiogram showed ejection fraction 50-55% with moderate LVH Monitor closely 03/09/2025: Stress test is done, pending result Continue current management Continue Bumex and Aldactone Discharge planning once the result is back Plan discussed with: Patient My Orders Orders - DEANGELO TY MD Procedure Category Date Status Time Consistent DIET 03/08/25 Transmitted Carb(Ccho)Diabetes Lunch Date of Service: Mar 09, 2025 Billing Provider: DEANGELO TY MD Common Visit Codes: [id number] INP/OBS CARE(HIGH) DEANGELO TY MD Mar 09, 2025 10:41
--- NOTE | 2025-03-09 11:53 | DVHSR ---
APPROVED REPORT Exam: Nuclear Stress Test BMI: 0 Stress Test Details Stress Test: Pharmacologic stress testing performed using 0.4 mg of regadenoson per 5 mL given IV ov er 10 seconds. HR Resting HR: 71 bpmMax Heart Rate (APMHR): 156.024011 bpm Max HR Achieved: 83 bpmTarget HR (85% APMHR): 132.005136 bpm % of APMHR: 53.21 Recovery HR: 76 bpm BP Resting BP: 124/58 mmHg Recovery BP: 112/58 mmHg ECG Resting ECG: Sinus Rhythm Clinical Reason for Termination: Completed protocol Nurse Comments Recieved pt. from [facility]. A/Ox4 on RA. Connected to patient monitor, VS stable. PIV flushes well. Re viewed POC. Pt. verbalized understanding of procedure including risks and side effects, agrees for st ress testing. Lexiscan stress test performed per protocol. [facility] tech administered Cardiolite. Pt. tolerated well . Pt. stable, no change on exam. VS returned to baseline. Transferred to [facility] via wheelchair w/ te ch. Stress ECG Conclusion lvef 51% inferolateral wall fixed defect no major ischemia noted NM EXAM: Myocardial Perfusion REST/STRESS Imaging Protocol: Rest Tc-99m/Stress Tc-99m 1 day Resting Data Rest SPECT myocardial perfusion imaging was performed in supine position 60 minutes following the int ravenous injection of 9.3 mCi of Tc-99m Sestamibi. Time of rest injection: 07:59 Date: 03/08/2025 Time of rest imagin:59 Date: 03/08/2025 Administration Route: IV Administration Site: Right Arm Pharmacologic Stress Pharmacologic stress test was performed by injecting Regadenoson 0.4 mg IV push followed by the intra venous injection of 32.4 mCi of Tc-99m Sestamibi. Time of stress injection: 10:40 Date: 03/08/2025 Time of stress imagin:40 Date: 03/08/2025 Administration Route: IV Administration Site: Right Arm Gated Stress SPECT was performed 60 minutes after stress injection. The images were gated to evaluate regional wall motion and calculate left ventricular ejection fracti on. Stress only was performed in the Supine position. Nuclear Conclusion Nuclear Findings: negative for ischemia lvef 51% inferolateral wall fixed defect no major ischemia noted
--- NOTE | 2025-03-09 13:57 | DVHPN2 ---
Consult Progress Note Date Seen: Mar 09, 2025 Subjective Review of Systems: CVS:Normal, RESPIRATORY:Normal, NEURO:Normal Other Systems: Denies any cardiac symptoms Objective vital signs Vital Sign Date Time Temp Pulse Resp B/P (MAP) Pulse Ox O2 Delivery O2 Flow Rate FiO2 03/09/25 09:14 132/83 03/09/25 09:00 98.1 84 17 95 98.1 03/09/25 08:00 Room Air* 0 21 Total Intake and Output 03/08/25 03/08/25 03/09/25 15:00 23:00 07:00 Intake Total 300 ml 900 ml Output Total 1050 ml 980 ml Balance -750 ml -80 ml medications Current Medications Medications Dose Ordered Sig/Rashid Route Start Time Stop Time Status Last Admin Dose Admin Aspirin 81 mg DAILY PO 03/07/25 10:00 03/09/25 09:14 81 MG Multivit/Ca Carb/ B Cmplx/FA/Prenat 1 tab DAILY PO 03/07/25 10:00 03/09/25 09:14 1 TAB Gabapentin 600 mg QID PO 03/06/25 18:00 03/09/25 12:46 600 MG Tamsulosin HCl 0.4 mg HS PO 03/06/25 22:00 03/08/25 21:13 0.4 MG Atorvastatin Calcium 40 mg HS PO 03/06/25 22:00 03/08/25 21:13 40 MG Nifedipine 30 mg DAILY PO 03/07/25 10:00 03/09/25 09:14 30 MG Heparin Sodium (Porcine) 5,000 units Q12HR SC 03/06/25 22:00 03/09/25 09:19 5,000 UNITS Sodium Chloride 10 ml Q8HR IV 03/06/25 22:00 03/09/25 06:21 10 ML Docusate Sodium 100 mg BIDPRN PRN PO 03/06/25 16:15 03/09/25 09:20 100 MG Acetaminophen 650 mg Q6HP PRN PO 03/06/25 16:15 Acetaminophen/ Hydrocodone Bitart 1 tab Q4HP PRN PO 03/06/25 16:15 Ondansetron HCl 4 mg Q4HP PRN IV 03/06/25 16:15 03/07/25 12:17 4 MG Diagnostic Test (Pha) 1 strip ACHS 03/07/25 17:00 03/09/25 11:12 1 STRIP Insulin Human Regular HS TN 03/07/25 22:00 03/08/25 22:00 6 UNITS Insulin Human Regular AC SC 03/07/25 17:00 03/09/25 11:15 6 UNITS Dextrose 50 ml UD PRN IV 03/07/25 12:30 Spironolactone 50 mg BIDD PO 03/07/25 18:00 03/09/25 06:20 50 MG Bumetanide 2 mg DAILY PO 03/08/25 10:00 03/09/25 09:14 2 MG Insulin Glargine 50 units DAILY@2100 SC 03/08/25 21:00 03/08/25 21:58 50 UNITS Examination: LUNGS:Normal, CVS:Normal, NEURO:Normal laboratory and microbiology Laboratory Tests 03/09/25 06:52 Test 03/09/25 06:52 Range/Units Serum Glucose 102 74-106 mg/dL Problem List/Assessment/Plan Problem List/Assessment/Plan Chest pain, rule out progressive coronary artery disease Coronary artery disease status post PTCA x2 PAULINA (on Plavix and aspirin) Peripheral arterial disease Hypertension Dyslipidemia Obstructive sleep apnea with CPAP use Type 2 diabetes mellitus, uncontrolled (A1c 9.2%) Chronic kidney disease History of polysubstance abuse Morbid obesity Plan/Recommendation (Dr. Quintanilla) * Transthoracic echocardiogram revealed LVEF 50-55% with moderate LVH * Non-ischemic cardiolite stress test * Single-antiplatelet therapy, lipid-lowering agent, and beta-shanon * Risk factor modifications including diet, exercise and weight loss * Follow-up with primary forestry laborer, Dr. Quintanilla, within 2-3 weeks post- discharge We will sign off at this time. Kindly call with any questions or concerns. Thank you for allowing us to care for this patient. This medical document was created using an electronic medical record system with voice recognition software and computerized dictation system. Although this document has been carefully reviewed, there might still be some phonetic and typographical errors. Occasional wrong-word or ``sound-alike substitutions may have occurred due to the inherent limitations of voice recognition software. These areas are purely typographical due to imperfections of the software programs and do not reflect any compromise in the patient's medical care. Please read the chart carefully and recognize, using context, where these substitutions have occurred. Plan discussed with: Patient, Other Dietary Evaluation Review Comments: 1) If patient remains NPO > 7 days, consider EN/TPN to meet at least 75% estimated daily needs 2) Advance to 60g CCHO renal cardiac diet when medically feasible 3) Collect HbA1c 4) Refer to outpatient RD/[facility] for weight management 5) Follow-up with cardiology and nephrology 6) Continue to monitor I&O, labs, and skin integrity Expected Outcomes/Goals: 1) patient to receive nutritional support within 7 days of NPO status 2) wounds and labs to improve 3) diet to advance 4) gradual wt loss 5) f/u in 3-5 days Date of Service: Mar 09, 2025 Billing Provider: FEDERICO CHURCH Cardiology Common Codes: 57393-GKDEEDPNHI INP/OBS CARE(Mod) FEDERICO CHURCH Mar 09, 2025 13:57
--- NOTE | 2025-03-09 14:50 | DVHDS2 ---
Discharge Summary Date of Admission Mar 06, 2025 at 16:02 Date of Discharge: Mar 09, 2025 Labs/Diagnostic Data: Laboratory Results Test 03/09/25 10:51 03/09/25 06:52 03/08/25 05:28 03/07/25 05:50 POC Glucose 227 mg/dl (70-106) White Blood Count 9.9 10^3/uL (4.4-10.8) Red Blood Count 4.35 10^6/uL (4.5-5.90) Hemoglobin 14.0 g/dL (13.5-17.5) Hematocrit 40.4 % (41.0-53.0) Mean Corpuscular Volume 92.9 fL (80.0-100.0) Mean Corpuscular Hemoglobin 32.1 pg (28.0-32.0) Mean Corpuscular Hemoglobin Concent 34.6 g/dL (32.0-36.0) Red Cell Distribution Width 13.7 % (11.8-14.3) Platelet Count 189 10^3/uL (140-450) Mean Platelet Volume 8.9 fL (6.9-10.8) Neutrophils (%) (Auto) 80.4 % (37.0-80.0) Lymphocytes (%) (Auto) 10.1 % (10.0-50.0) Monocytes (%) (Auto) 8.2 % (0.0-12.0) Eosinophils (%) (Auto) 1.0 % (0.0-7.0) Basophils (%) (Auto) 0.3 % (0.0-2.0) Neutrophils # (Auto) 7.9 10 ^3/uL (1.6-8.6) Lymphocytes # (Auto) 1.0 10 ^3/uL (0.4-5.4) Monocytes # (Auto) 0.8 10 ^3/uL (0-1.3) Eosinophils # (Auto) 0.1 10 ^3/uL (0-0.8) Basophils # (Auto) 0 10 ^3/uL (0-0.2) Nucleated Red Blood Cells 0.1 % Sodium Level 136 mmol/L (136-145) Potassium Level 4.7 mmol/L (3.5-5.1) Chloride Level 103 mmol/L (98-107) Carbon Dioxide Level 26 mmol/L (20-31) Anion Gap 7 (5-15) Blood Urea Nitrogen 49 mg/dL (9-23) Creatinine 1.95 mg/dL (0.700-1.30) Glomerular Filtration Rate Calc 38 mL/min (>90) BUN/Creatinine Ratio 25.1 (10.0-20.0) Serum Glucose 102 mg/dL (74-106) Calcium Level 8.7 mg/dL (8.7-10.4) Total Bilirubin 0.3 mg/dL (0.2-1.0) Aspartate Amino Transferase (AST) 32 U/L (13-40) Alanine Aminotransferase (ALT) 27 U/L (7-40) Alkaline Phosphatase 73 U/L (46-116) Total Protein 7.1 g/dL (5.7-8.2) Albumin 3.8 g/dL (3.2-4.8) Magnesium Level 2.3 mg/dL (1.6-2.6) Triglycerides Level 144 mg/dL (< 150) Cholesterol Level 83 mg/dL (< 200) LDL Cholesterol 37 mg/dL (< 100) HDL Cholesterol 30 mg/dL (40-59) Thyroid Stimulating Hormone (TSH) 0.50 uIU/mL (0.55-4.78) Hemoglobin A1c 9.2 % A1C (<5.7) Test 03/06/25 13:11 03/06/25 13:06 03/06/25 12:05 Troponin I High Sensitivity 29 ng/L (</=54) Urine Color Light-yellow (Yellow) Urine Clarity Clear (Clear) Urine pH 5.5 (5.0-9.0) Urine Specific [place] 1.008 (1.001-1.035) Urine Protein Negative (Negative) Urine Ketones Negative (Negative) Urine Blood Negative /uL (Negative) Urine Nitrite Negative (Negative) Urine Bilirubin Negative (Negative) Urine Urobilinogen Normal mg/dL (Negative) Urine Leukocyte Esterase Negative /uL (Negative) Urine RBC <1 /hpf (0 - 3) Urine Microscopic WBC < 1 /HPF (0-3) Urine Squamous Epithelial Cells Few /hpf (<5) Urine Bacteria Few /hpf (None Seen) Urine Hyaline Casts Few /lpf (0 - 2) Urine Glucose Normal mg/dL (Normal) Differential Total Cells Counted 100.0 (100) Neutrophils % (Manual) 85 (37.0-80.0) Band Neutrophils % (Manual) 2 Lymphocytes % (Manual) 8 (10.0-50.0) Monocytes % (Manual) 4 (0-12) Eosinophils % (Manual) 1 (0-7) Basophils % (Manual) 0 (0.0-2.0) Metamyelocytes % (manual) 0 Myelocytes % (Manual) 0 Promyelocytes % (Manual) 0 Blast Cells % (Manual) 0 Reactive Lymphocytes 0 Platelet Estimate Adequate B-Type Natriuretic Peptide 33.27 pg/mL (0-100) Other Laboratory Tests 03/09/25 06:52 Brief Hx & Hospital Course: Final diagnoses: Chest pain Coronary artery disease status post PTCA x2 PAULINA (on Plavix and aspirin) Chronic kidney disease stage 3 Hyponatremia Type 2 diabetes Hypertension Bilateral foot amputations Peripheral arterial disease Dyslipidemia History of GI bleed requiring blood transfusion COPD Obstructive sleep apnea with CPAP use History of polysubstance abuse Morbid obesity 65 year old male was admitted for chest pain [place] was ruled out He underwent a stress test, it was negative for ischemia His CKD remained stable He is asymptomatic now DC home Resume the same home meds Discontinue Metolazone Resume Bumex and Aldactone Condition at Discharge: Stable Final Diagnosis/Problems List Chest pain Coronary artery disease status post PTCA x2 PAULINA (on Plavix and aspirin) Chronic kidney disease stage 3 Hyponatremia Type 2 diabetes Hypertension Bilateral foot amputations Peripheral arterial disease Dyslipidemia History of GI bleed requiring blood transfusion COPD Obstructive sleep apnea with CPAP use History of polysubstance abuse Morbid obesity Discharge Disposition: Home SNF Discharge Will this Physician continue t: No Discharge Instruct/Medications Scheduled Aspirin (Aspir-81), 81 MG PO DAILY, (Reported) Atorvastatin Calcium (Lipitor), 40 MG PO HS, (Reported) B-Complex W/ C & Folic Acid (Nephro-Edie Rx), 1 TAB PO DAILY, (Reported) Bumetanide (Bumetanide), 1 TAB PO BID, (Reported) Clopidogrel Bisulfate (Plavix), 75 MG PO DAILY, (Reported) Ferric Citrate (Auryxia), 210 MG PO DAILY, (Reported) Gabapentin (Gabapentin), 600 MG PO QID, (Reported) Gabapentin (Gabapentin), PO BID, (Reported) Hydralazine Hcl (Hydralazine Hcl), 50 MG PO TID, (Reported) Insulin Glargine (Basaglar Kwikpen), 50 UNIT SC HS, (Reported) Metolazone (Metolazone), 10 MG PO DAILY, (Reported) Metoprolol Tartrate (Metoprolol Tartrate), 25 MG PO BID, (Reported) Nifedipine (Nifedipine Er), 1 TAB PO DAILY, (Reported) Nifedipine (Nifedipine Er), 1 TAB PO DAILY, (Reported) Spironolactone (Spironolactone), 50 MG PO BID, (Reported) Tamsulosin Hcl (Tamsulosin Hcl), 0.4 MG PO HS, (Reported) [novalog], 14 SC QAM, (Reported) [novalog], 8 UNITS SC QPM, (Reported) [novalog], 8 UNITS SC lunch time, (Reported) Discharge Statement: "Patient was advised to return to the ER or call 911 if any headaches, dizziness, shortness of breath, chest pain, abdominal pain, bleeding, fevers, or worsening of medical condition. Patient was counseled about treatment plan, medications, possible side effects, patientverbalized understanding. All questions were answered to the best of my ability. This discharge took greater then 30 minutes in planning, reviewing documentation, counseling the patient, and discussing with other team members." ASSESSMENT ASSESSMENT Assessment Date of Service: Mar 09, 2025 Billing Provider: DEANGELO TY MD Common Visit Codes: 39957-GZH/OBS DISCH DAY >30min DEANGELO TY MD Mar 09, 2025 14:50
== END 2025-03-09 19:25 | disposition home or self-care (01) | DRG 302 ==
LOC: EDBD 10:34 → ER 10:34 → OVERFLOW 16:02 → WEST WING 18:03
PROVIDERS: ADMIT Internal Medicine Geriatric Medicine; ATTEND Internal Medicine Geriatric Medicine
PROC: 5A09357 Assistance with Respiratory Ventilation, Less than 24 Consecutive Hours, Continuous Positive Airway Pressure (ICD-10-PCS; principal; 2025-03-07)
DX: I25.10 Atherosclerotic heart disease of native coronary artery without angina pectoris (principal); N17.0 Acute kidney failure with tubular necrosis; N18.6 End stage renal disease; E87.1 Hypo-osmolality and hyponatremia; I13.2 Hypertensive heart and chronic kidney disease with heart failure and with stage 5 chronic kidney disease, or end stage renal disease; E66.01 Morbid (severe) obesity due to excess calories; E78.5 Hyperlipidemia, unspecified; Z68.35 Body mass index [BMI] 35.0-35.9, adult; G47.33 Obstructive sleep apnea (adult) (pediatric); J44.9 Chronic obstructive pulmonary disease, unspecified; I50.9 Heart failure, unspecified; E11.22 Type 2 diabetes mellitus with diabetic chronic kidney disease; E11.51 Type 2 diabetes mellitus with diabetic peripheral angiopathy without gangrene; H54.61 Unqualified visual loss, right eye, normal vision left eye; F17.210 Nicotine dependence, cigarettes, uncomplicated; Z98.61 Coronary angioplasty status; Z98.84 Bariatric surgery status; Z90.49 Acquired absence of other specified parts of digestive tract
CPT/HCPCS: 36415; 71045; 78452; 80048; 80053; 80061; 81001; 82962; 83036; 83735; 83880; 84443; 84484; 85007; 85025; 85027; 93005; 93017; 93306; 94660; 96361; 96374; 96375; G0378; J1815; J2405